=== PATIENT | male | born 1970 | race Hispanic/Latino ===

== ENCOUNTER 2017-05-05 13:34 | Observation (INO) | payer BC, MEDICAID ==
[2017-05-05 13:51] VITALS: RESP 18; TEMP 97.6; O2SAT 99; BMI 26.1
--- NOTE | 2017-05-05 14:38 | ED PDOC ---
Arrival/HPI - General Historian: Patient - History of Present Illness Time/Duration: Prior to Arrival Symptom Onset: Gradual Symptom Course: Worsening Context: Home - General Chief Complaint: Lower Extremity Problem/Injury Time Seen by Provider: 05/05/17 13:55 - History of Present Illness Narrative History of Present Illness (Text): 05/05/17 14:27 47 yo male with PMH of DM, HTN presented to ED with progressively worsening ulcer of great toe on left foot. Patient states that the wound started as an abscess 2 years ago while living in [place]. At that time the wound was debribed. Patient was seeing podiatry, Dr. Bullard however he stopped going months ago. The Patient decided to come in to the ED because the pain became unbearable. Per patient the wound is draining and the smell has worsened. Pain is 7/10, radiating up his leg. He reports fever and chills, as well as diarrhea. He states he took Tylenol at home to help with pain and fever. PMD: Dr. Sears ([facility]) Past Medical History - Provider Review Nursing Documentation Reviewed: Yes - Infectious Disease Hx of Infectious Diseases: None - Tetanus Immunization Tetanus Immunization: Unknown - Past Medical History Past Medical History: No Previous - Cardiac Hx Cardiac Disorders: Yes Hx Hypertension: Yes - Pulmonary Hx Respiratory Disorders: No - Neurological Hx Neurological Disorder: Yes HX Cerebrovascular Accident: Yes (10/26/14) Hx Transient Ischemic Attacks (TIA): Yes - HEENT Hx HEENT Disorder: No - Renal Hx Renal Disorder: No - Endocrine/Metabolic Hx Endocrine Disorders: Yes Hx Diabetes Mellitus Type 2: Yes - Hematological/Oncological Hx Blood Disorders: No - Integumentary Hx Dermatological Disorder: No - Musculoskeletal/Rheumatological Hx Falls: No - Gastrointestinal Hx Gastrointestinal Disorders: No - Genitourinary/Gynecological Hx Genitourinary Disorders: No - Psychiatric Hx Psychophysiologic Disorder: Yes Hx Anxiety: Yes Hx Depression: Yes Hx Substance Use: Yes (heroin, xanax, suboxone) - Past Surgical History Past Surgical History: No Previous - Surgical History Hx Cardiac Catheterization: Yes Hx Coronary Stent: No Hx Joint Replacement: Yes (Right knee) Hx Musculoskeletal Surgery: Yes Hx Orthopedic Surgery: Yes (multiple implants 6 rods 20 screws) - Anesthesia Hx Anesthesia: Yes Hx Anesthesia Reactions: No Hx Malignant Hyperthermia: No - Suicidal Assessment Feels Threatened In Home Enviroment: No Family/Social History - Physician Review Nursing Documentation Reviewed: Yes Family/Social History: No Known Family HX Smoking Status: Heavy Smoker > 10 Cigarettes Daily Hx Alcohol Use: Yes (occasional) Hx Substance Use: Yes (heroin, xanax, suboxone. Current marijuana use) Substance used: recovering cocaine and heroin Hx Substance Use Treatment: No Allergies/Home Meds Allergies/Adverse Reactions: Allergies No Known Allergies Allergy (Verified 10/04/16 11:08) Home Medications: Home Meds Medication Instructions Recorded Confirmed Alprazolam [Xanax] 2 mg PO TID 07/29/16 07/29/16 Quetiapine Fumarate [Seroquel] 100 mg PO DAILY 07/29/16 07/29/16 Gabapentin [Neurontin] 300 mg PO TID 08/16/16 08/16/16 MetFORMIN [glucoPHAGE] 1,000 mg PO DAILY 08/16/16 08/16/16 Review of Systems - Review of Systems Constitutional: Fevers. absent: Weight Change Eyes: Normal ENT: Normal Respiratory: Normal. absent: SOB, Cough, Sputum Cardiovascular: Normal, Edema. absent: Chest Pain, Calf Pain, Syncope Gastrointestinal: Normal, Diarrhea. absent: Abdominal Pain, Constipation, Nausea, Vomiting Genitourinary Male: Normal. absent: Dysuria, Frequency, Hematuria Musculoskeletal: Normal, Joint Swelling. absent: Arthralgias, Back Pain Skin: Normal, Ulcer (left great toe). absent: Rash, Pruritis Neurological: Normal. absent: Headache, Dizziness Endocrine: Normal Hemo/Lymphatic: Normal. absent: Easy Bleeding, Easy Bruising Psychiatric: Normal Physical Exam - Systems Exam Head: Present: Atraumatic, Normocephalic Pupils: Present: Pinpoint Extroacular Muscles: Present: EOMI. No: Gaze Palsy, Entrapment Conjunctiva: Present: Normal. No: Injected, Icteric Mouth: Present: Moist Mucous Membranes. No: Dry Neck: Present: Normal Range of Motion Respiratory/Chest: Present: Clear to Auscultation, Good Air Exchange. No: Respiratory Distress, Accessory Muscle Use, Wheezes, Rhonchi, Tachypneic Cardiovascular: Present: Regular Rate and Rhythm, Normal S1, S2. No: Murmurs, Tachycardic Abdomen: Present: Tenderness, Normal Bowel Sounds. No: Distention, Peritoneal Signs Upper Extremity: Present: Normal Inspection. No: Cyanosis, Edema Lower Extremity: Present: NORMAL PULSES, Other (ulcer, drain with necrotic tissue ). No: CALF TENDERNESS Neurological: Present: GCS=15, CN II-XII Intact Psychiatric: Present: Alert, Oriented x 3, Lethargic Vital Signs Temp Pulse Resp BP Pulse Ox 05/05/17 16:50 89 18 121/75 99 05/05/17 15:25 94 H 18 123/78 99 05/05/17 13:51 97.6 F 101 H 18 125/85 99 05/05/17 13:50 97.6 F 101 H 18 125/85 99 Medical Decision Making ED Course and Treatment: Patient Seen With Resident: In agreement with resident note. Patient was seen and evaluated with resident, came up with plan and treatment together. (José Manuel Dyer) 05/05/17 14:45 Impression: 47 yo male with PMH of DM, HTN, IVDA presented with left great toe wound. Differential Diagnosis included but are not limited to: osteomylitis Plan: - cbc - cmp - xray - blood and wound cultures - abx -- Reassess and disposition Progress Notes: 05/05/17 15:57 - xray of foot showed bony destruction of 5th phalanx, findings consistent with osteomylitis. 05/05/17 16:12 - Labs were reviewed. Case was discussed with Dr. Sears patient will be admitted for osteomylitis. ID, Dr. Weston and podiatry, Dr. Bullard consulted. 05/05/17 16:59 - patient complained of pain. Refused Tylenol. Will order morphine. (Hallie Pritchett) - Lab Interpretations Lab Results: 05/05/17 15:15 05/05/17 15:15 Lab Results 05/05/17 15:15: Sodium 141, Potassium 4.7, Chloride 108 H, Carbon Dioxide 25, Anion Gap 13, BUN 16, Creatinine 0.8, Est GFR ( Amer) > 60, Est GFR (Non- Af Amer) > 60, Random Glucose 277 H, Calcium 9.1, Total Bilirubin 0.3, AST 21, ALT 28, Alkaline Phosphatase 66, Total Protein 6.9, Albumin 3.8, Globulin 3.1, Albumin/Globulin Ratio 1.2 05/05/17 15:15: WBC 7.7, RBC 4.24, Hgb 11.6 L, Hct 35.6 L, MCV 84.0, MCH 27.4, MCHC 32.6, RDW 13.4, Plt Count 223, MPV 9.9, Gran % 61.8, Lymph % (Auto) 30.1, Wise % (Auto) 4.9, Eos % (Auto) 2.3, Baso % (Auto) 0.9, Gran # 4.75, Lymph # 2.3 , Wise # 0.4, Eos # 0.2, Baso # 0.07 - RAD Interpretation Radiology Orders: 05/05/17 14:25 FOOT LEFT 3 VIEWS ROUTINE [RAD] Stat - Medication Orders Current Medication Orders: Discontinued Medications Acetaminophen (Tylenol 325mg Tab) 650 mg PO STAT STA Stop: 05/05/17 15:39 Last Admin: 05/05/17 16:43 Dose: Not Given Non-Admin Reason: Patient Refused Vancomycin HCl (Vancomycin 1gm) 1 gm in 250 mls @ 167 mls/hr IVPB STAT STA PRN Reason: Protocol Stop: 05/05/17 16:08 Last Admin: 05/05/17 16:05 Dose: 167 mls/hr Piperacillin Sod/Tazobactam Sod (Zosyn 3.375 In Ns 100ml) 100 mls @ 200 mls/hr IVPB STAT STA PRN Reason: Protocol Stop: 05/05/17 15:08 Last Admin: 05/05/17 15:27 Dose: 200 mls/hr Morphine Sulfate (Morphine) 2 mg IM STAT STA Stop: 05/05/17 16:34 Last Admin: 05/05/17 16:53 Dose: 2 mg Disposition/Present on Arrival - Present on Arrival Any Indicators Present on Arrival: No History of DVT/PE: No History of Uncontrolled Diabetes: No Urinary Catheter: No History of Decub. Ulcer: No History Surgical Site Infection Following: None - Disposition Have Diagnosis and Disposition been Completed?: Yes Disposition Time: 16:05 Patient Plan: Admission - Disposition Diagnosis: Osteomyelitis of foot Disposition: HOSPITALIZED Patient Problems: Current Active Problems Problem Status Onset Osteomyelitis of foot Acute Condition: FAIR
[2017-05-05] MEDS ORDERED: Piperacillin/Tazobact 3.375 gm 100 ML IVPB STA (14:39)
[2017-05-05] MEDS ORDERED: Vancomycin 1gm in NS 250ml 1 GM/250 ML BAG IVPB STA (14:39)
--- NOTE | 2017-05-05 15:21 | RAD ---
PROCEDURE: Left Foot Radiographs. HISTORY: great toe ulcer COMPARISON: 09/30/2015 FINDINGS: BONES: There is bony destruction of the 5th proximal phalanx which was not present on the prior study. Findings consistent with osteomyelitis. JOINTS: Normal. SOFT TISSUES: Normal. OTHER FINDINGS: None. IMPRESSION: There is bony destruction of the 5th proximal phalanx which was not present on the prior study. Findings consistent with osteomyelitis.
[2017-05-05 15:41] LABS: BASO # 0.07 K/mm3 (0.0-2.0); BASO % 0.9 % (0.0-3.0); EOS # 0.2 (0.0-0.7); EOS % 2.3 % (1.5-5.0); GRAN # 4.75 (1.4-6.5); GRAN % 61.8 % (50.0-68.0); HEMOGLOBIN 11.6 gm/dL (14.0-18.0); LYMPH # 2.3 (1.2-3.4); LYMPH % 30.1 % (22.0-35.0); MEAN CORPUSCULAR HEMOGLOBIN 27.4 pg (25.0-35.0); MEAN CORPUSCULAR HGB CONC 32.6 g/dl (31.0-37.0); MEAN PLATELET VOLUME 9.9 fl (7.0-11.0); MONO # 0.4 (0.1-0.6); MONO % 4.9 % (1.0-6.0); PLATELET COUNT 223 10^3/uL (120.0-450.0); RBC 4.24 10^6/uL (3.5-6.1); RED CELL DISTRIBUTION WIDTH 13.4 % (11.5-14.5); WHITE BLOOD COUNT 7.7 10^3/ul (4.5-11.0)
[2017-05-05 15:44] LABS: ALB/GLOB RATIO 1.2 (1.1-1.8); ALBUMIN 3.8 g/dL (3.0-4.8); ALT/SGPT 28 U/L (7-56); AST/SGOT 21 U/L (15-59); BLOOD UREA NITROGEN 16 mg/dL (7-21); CALCIUM 9.1 mg/dL (8.4-10.5); GFR AFRICAN-AMERICAN > 60; GFR NON-AFRICAN AMERICAN > 60
[2017-05-05] MEDS ORDERED: Morphine 2 mg/ml ISec IM STA (16:33)
[2017-05-05 16:51] VITALS: BP 121/75; PULSE 89
[2017-05-05] MEDS ORDERED: Morphine 2 mg/ml ISec IVP PRN (18:48)
--- NOTE | 2017-05-05 18:59 | CP.PCM.CON ---
History of Present Illness - History of Present Illness History of Present Illness: Infectious Disease Consultation: May 05, 2017 47 yo male with history of NIDDM, hypertension, CAD, TIA, [place], depression, anxiety, IVDA with progressively worsening ulcer on the left foot great toe. Patient had an abscess there 2 years ago. Increasing pain to the area with drainage and malodor. Pain is radiating up the leg. The patient had fevers at home. PMHx: NIDDM, hypertension, CAD, TIA, [place], depression, anxiety, IVDA PSHx: Right Knee replacement, cardiac catheterization, multiple orthopedic surgeries including multiple implants, 6 rods, and 20 screws. Allergies: NKDA Social Hx: Heroin, Xanax, and Suboxone use Social EtOH Heavy tobacco use history Medications: Seroquel, Metformin, Mobic, Neurontin, Xanax Family Hx: none given ROS: fevers, left foot pain, depression, anxiety. No chest pain, melena, hematuria, hematochezia, hematemesis, SOB, vision loss, hearing loss. Past Patient History - Infectious Disease Hx of Infectious Diseases: None - Tetanus Immunizations Tetanus Immunization: Unknown - Past Medical History & Family History Past Medical History?: Yes - Past Social History Smoking Status: Heavy Smoker > 10 Cigarettes Daily - CARDIAC Hx Cardiac Disorders: Yes Hx Hypertension: Yes - PULMONARY Hx Respiratory Disorders: No - NEUROLOGICAL Hx Neurological Disorder: Yes HX Cerebrovascular Accident: Yes (10/26/14) Hx Transient Ischemic Attacks (TIA): Yes - HEENT Hx HEENT Problems: No - RENAL Hx Chronic Kidney Disease: No - ENDOCRINE/METABOLIC Hx Endocrine Disorders: Yes Hx Diabetes Mellitus Type 2: Yes - HEMATOLOGICAL/ONCOLOGICAL Hx Blood Disorders: No - INTEGUMENTARY Hx Dermatological Problems: No - MUSCULOSKELETAL/RHEUMATOLOGICAL Hx Falls: No - GASTROINTESTINAL Hx Gastrointestinal Disorders: No - GENITOURINARY/GYNECOLOGICAL Hx Genitourinary Disorders: No - PSYCHIATRIC Hx Psychophysiologic Disorder: Yes Hx Anxiety: Yes Hx Depression: Yes Hx Substance Use: Yes (heroin, xanax, suboxone. Current marijuana use) - SURGICAL HISTORY Hx Cardiac Catheterization: Yes Hx Coronary Stent: No Hx Joint Replacement: Yes (Right knee) Hx Musculoskeletal Surgery: Yes Hx Orthopedic Surgery: Yes (multiple implants 6 rods 20 screws) - ANESTHESIA Hx Anesthesia: Yes Hx Anesthesia Reactions: No Hx Malignant Hyperthermia: No Meds Allergies/Adverse Reactions: Allergies Allergy/AdvReac Type Severity Reaction Status Date / Time No Known Allergies Allergy Verified 10/04/16 11:08 Physical Exam - Constitutional Appears: Non-toxic, No Acute Distress, Chronically Ill - Head Exam Head Exam: ATRAUMATIC, NORMOCEPHALIC - Eye Exam Eye Exam: EOMI, PERRL Pupil Exam: NORMAL ACCOMODATION, PERRL - ENT Exam ENT Exam: Mucous Membranes Moist, Normal External Ear Exam, TM's Normal Bilaterally - Neck Exam Neck exam: Positive for: Full Rom, Normal Inspection - Respiratory Exam Respiratory Exam: Clear to Auscultation Bilateral, NORMAL BREATHING PATTERN. absent: Rales, Rhonchi, Wheezes - Cardiovascular Exam Cardiovascular Exam: REGULAR RHYTHM, RRR, +S1, +S2 - GI/Abdominal Exam GI & Abdominal Exam: Normal Bowel Sounds, Soft. absent: Distended, Tenderness - Extremities Exam Extremities exam: Positive for: full ROM Additional comments: stage III ulceration at least in big toe of left foot. malodorous with serosanguinous discharge. - Neurological Exam Neurological exam: Alert, CN II-XII Intact, Oriented x3 - Psychiatric Exam Psychiatric exam: Normal Affect, Normal Mood - Skin Additional comments: as above. Results - Vital Signs Recent Vital Signs: Last Vital Signs Temp 97.6 F 05/05/17 13:51 Pulse 89 05/05/17 16:50 Resp 18 05/05/17 16:50 BP 121/75 05/05/17 16:50 Pulse Ox 99 05/05/17 16:50 - Labs Result Diagrams: 05/05/17 15:15 05/05/17 15:15 Assessment & Plan - Assessment and Plan (Free Text) Assessment: 47 yo male with extensive past medical history that includes NIDDM, hypertension , CAD, TIA, [place], depression, anxiety, IVDA. The patient with deep ulceration to the left big toe with concerns for osteomyelitis. Patient started on antibiotics of Zosyn and Vancomycin for care. Supportive care. Local wound care. Awaiting cultures from wound site. Obtain ESR and C-Reactive Protein. Awaiting podiatry evaluation. May need MRI as well. X-ray showing bony destruction of the 5th proximal phalanx not seen in other imaging studies of the left foot prior to this. Thank you for allowing me to participate in the care of the patient, we will follow with you.
[2017-05-05] MEDS ORDERED: Vancomycin 1gm in NS 250ml 1 GM/250 ML BAG IVPB SCH (19:00)
[2017-05-05] MEDS ORDERED: Insulin Reg-LOW-Coverage SC SCH (22:00)
[2017-05-06] MEDS ORDERED: Piperacillin/Tazobact 3.375 gm 100 ML IVPB SCH
--- NOTE | 2017-05-24 12:46 | HP ---
HISTORY OF PRESENT ILLNESS: The patient is a 47-year-old male, admitted through the Emergency [facility] on 05/05/2017 for osteomyelitis of the foot. The patient signed out AMA before I was able to se e him. Nicholas Sears JD, MD cc: [id number] TT: 05/24/2017 12:46:23 en
--- NOTE | 2017-05-24 18:15 | DS ---
HOSPITAL COURSE: The patient is a 47-year-old male admitted through the Emergency Department on 05/2017. He signed out AMA and I was unable to see him. Nicholas Sears JD, MD cc: [id number] TT: 05/24/2017 18:15:17 dn
== END 2017-05-05 20:23 | disposition left against medical advice (07) ==
LOC: ED 13:34 → ERH 16:10 → 3RNO 18:17
PROVIDERS: ADMIT Internal Medicine; ATTEND Internal Medicine
DX: E11.69 Type 2 diabetes mellitus with other specified complication (principal); M86.8X7 Other osteomyelitis, ankle and foot; E11.621 Type 2 diabetes mellitus with foot ulcer; L97.529 Non-pressure chronic ulcer of other part of left foot with unspecified severity; I10 Essential (primary) hypertension; I25.10 Atherosclerotic heart disease of native coronary artery without angina pectoris; Z79.899 Other long term (current) drug therapy; Z86.73 Personal history of transient ischemic attack (TIA), and cerebral infarction without residual deficits; Z96.651 Presence of right artificial knee joint; F41.9 Anxiety disorder, unspecified; F32.89 Other specified depressive episodes; F11.90 Opioid use, unspecified, uncomplicated; F13.90 Sedative, hypnotic, or anxiolytic use, unspecified, uncomplicated; F12.90 Cannabis use, unspecified, uncomplicated; F19.90 Other psychoactive substance use, unspecified, uncomplicated; R40.2412 Glasgow coma scale score 13-15, at arrival to emergency department; I25.2 Old myocardial infarction; F17.210 Nicotine dependence, cigarettes, uncomplicated
CPT/HCPCS: 73630; 80053; 85025; 87040; 87070; 87181; 96372; 96374; 96375; 99284; G0378; J2270; J2543

== ENCOUNTER 2017-05-15 19:30 | Emergency (ER) | payer BC ==
[2017-05-15 19:32] VITALS: BMI 26.2
[2017-05-15 19:51] VITALS: PULSE 97; RESP 16; O2SAT 99
[2017-05-15 20:21] VITALS: BP 138/72
--- NOTE | 2017-05-15 20:26 | ED PDOC ---
Arrival/HPI - General Chief Complaint: Lower Extremity Problem/Injury Time Seen by Provider: 05/15/17 19:50 Historian: Patient - History of Present Illness Narrative History of Present Illness (Text): 05/15/17 20:22 47yr old male with hx osteomyelitis to the left foot presents today with worsening left foot pain. Patient states he has just completed Levaquin at home. Patient states he is still having pain. pt states he isnt taking any medications for pain at home and needs pain medication. Friend at beside states patient keeps signing out against medical advise. pt denies fever/chills. c/o severe pain to the left foot. pt states he was supposed to f/u in the wound clinic but no one ever called him. no other complaints. Symptom Onset: Gradual Symptom Course: Unchanged Quality: Aching, Burning, Throbbing Severity Level: Severe Past Medical History - Provider Review Nursing Documentation Reviewed: Yes - Travel History Have you recently traveled outside [place] w/in the past 3 mons?: No - Infectious Disease Hx of Infectious Diseases: None - Tetanus Immunization Tetanus Immunization: Unknown - Past Medical History Past Medical History: No Previous - Cardiac Hx Cardiac Disorders: Yes Hx Hypertension: Yes - Pulmonary Hx Respiratory Disorders: No - Neurological Hx Neurological Disorder: Yes HX Cerebrovascular Accident: Yes (10/26/14) Hx Transient Ischemic Attacks (TIA): Yes - HEENT Hx HEENT Disorder: No - Renal Hx Renal Disorder: No - Endocrine/Metabolic Hx Endocrine Disorders: Yes Hx Diabetes Mellitus Type 2: Yes - Hematological/Oncological Hx Blood Disorders: No - Integumentary Hx Dermatological Disorder: No - Musculoskeletal/Rheumatological Hx Falls: No - Gastrointestinal Hx Gastrointestinal Disorders: No - Genitourinary/Gynecological Hx Genitourinary Disorders: No - Psychiatric Hx Psychophysiologic Disorder: Yes Hx Anxiety: Yes Hx Depression: Yes Hx Substance Use: Yes (heroin, xanax, suboxone. Current marijuana use) - Past Surgical History Past Surgical History: No Previous - Surgical History Hx Cardiac Catheterization: Yes Hx Coronary Stent: No Hx Joint Replacement: Yes (Right knee) Hx Musculoskeletal Surgery: Yes Hx Orthopedic Surgery: Yes (multiple implants 6 rods 20 screws) - Anesthesia Hx Anesthesia: Yes Hx Anesthesia Reactions: No Hx Malignant Hyperthermia: No - Suicidal Assessment Feels Threatened In Home Enviroment: No Family/Social History - Physician Review Nursing Documentation Reviewed: Yes Family/Social History: Unknown Family HX Smoking Status: Heavy Smoker > 10 Cigarettes Daily Hx Alcohol Use: Yes (occasional) Frequency of alcohol use: Socially Hx Substance Use: Yes (heroin, xanax, suboxone. Current marijuana use) Substance used: recovering cocaine and heroin Hx Substance Use Treatment: No Allergies/Home Meds Allergies/Adverse Reactions: Allergies No Known Allergies Allergy (Verified 05/15/17 19:32) Home Medications: Home Meds Medication Instructions Recorded Confirmed Alprazolam [Xanax] 2 mg PO TID 07/29/16 05/15/17 Quetiapine Fumarate [Seroquel] 100 mg PO DAILY 07/29/16 05/15/17 Gabapentin [Neurontin] 300 mg PO TID 08/16/16 05/15/17 MetFORMIN [glucoPHAGE] 1,000 mg PO DAILY 08/16/16 05/15/17 Review of Systems - Review of Systems Constitutional: absent: Fevers Cardiovascular: absent: Chest Pain Gastrointestinal: absent: Abdominal Pain Musculoskeletal: Arthralgias Skin: Rash, Skin Lesions Neurological: absent: Headache Physical Exam Vital Signs Reviewed: Yes Vital Signs Pulse Resp Pulse Ox 05/15/17 19:51 97 H 16 99 Temperature: Afebrile Blood Pressure: Normal Pulse: Regular Respiratory Rate: Normal Appearance: Positive for: Well-Appearing, Non-Toxic, Comfortable Pain Distress: None Mental Status: Positive for: Alert and Oriented X 3 Finger Stick Blood Glucose: 216 - Systems Exam Head: Present: Atraumatic Mouth: Present: Moist Mucous Membranes Cardiovascular: Present: Regular Rate and Rhythm Upper Extremity: Present: Normal Inspection, Normal ROM Lower Extremity: Present: Normal ROM, Tenderness (left foot; there is a ulcer noted to the plantar aspect of the left great toe; + slight erythema noted to toe; no purulent discharge noted; no ankle tenderness. no calf tenderness. no edema. ), Capillary Refill < 2 s. No: CALF TENDERNESS, Swelling, Erythema, Deformity, Temperature Abnormalties Neurological: Present: GCS=15, Speech Normal Skin: Present: Warm, Dry Psychiatric: Present: Alert, Oriented x 3 Medical Decision Making ED Course and Treatment: 05/15/17 20:28 diabetic male with left great toe ulcer. will check blood work and xray left foot. toradol ordered for pain pt refusing to take toradol for pain; wants to sign out against advise. states toradol doesnt work for his pain. [employer] aware site reviewed; pt had rx for oxycontin 15mg on 05/07 filled. when questioned about it he denied taking any medications. pt became agitated in ER. refusing blood work, wants to leave. Patient has been advised to not leave the emergency room but has decided to go AGAINST MEDICAL ADVICE. The patient possesses capacity to make decisions and has voiced understanding to all my warnings of potential worsening of the condition for which medical care was sought. I have discussed all known and potential risks and consequences to the patient leaving AGAINST MEDICAL ADVICE. Patient is leaving against medical advise. AMA form signed. witness by TRISTAN ESCALANTE. i advised patient of risk of infection, , loss of limb, disability, worsening of symptoms. pt was advised that he can return at any point in time to continue his care. impression; toe ulcer, hx of DM, hx of osteomyelitis AMA return if you wish to continue your care. - RAD Interpretation Radiology Orders: 05/15/17 20:14 FOOT LEFT 3 VIEWS ROUTINE [RAD] Stat - Medication Orders Current Medication Orders: Ketorolac Tromethamine (Toradol) 30 mg IVP STAT STA Stop: 05/15/17 20:14 Disposition/Present on Arrival - Present on Arrival Any Indicators Present on Arrival: No History of DVT/PE: No History of Uncontrolled Diabetes: No Urinary Catheter: No History of Decub. Ulcer: No History Surgical Site Infection Following: None - Disposition Have Diagnosis and Disposition been Completed?: Yes Diagnosis: Ulcer of toe, Foot pain, History of osteomyelitis Disposition: AGAINST MEDICAL ADVICE Disposition Time: 20:20 Patient Plan: Other (AMA) Condition: UNKNOWN Additional Instructions: return if you wish to continue your care return immediately if symptoms worsen,persist or if new symptoms develop. Referrals: Nicholas Sears JD, MD [Primary Care Provider] - Follow up with primary Elisabeth Bullard DPM [Staff Provider] - Follow up with primary
== END 2017-05-15 20:22 | disposition left against medical advice (07) ==
LOC: ED 19:30
DX: E11.621 Type 2 diabetes mellitus with foot ulcer (principal); L97.529 Non-pressure chronic ulcer of other part of left foot with unspecified severity; M79.672 Pain in left foot; M86.8X7 Other osteomyelitis, ankle and foot

== ENCOUNTER 2017-05-15 23:40 | Emergency (ER) | payer BC ==
[2017-05-15 23:40] VITALS: BMI 26.2
[2017-05-16 00:06] VITALS: RESP 18
[2017-05-16] MEDS ORDERED: Sodium Chloride 0.9% 1,000 ML IV STA ×2 (00:24→03:03)
[2017-05-16 01:05] LABS: BASO # 0.03 K/mm3 (0.0-2.0); BASO % 0.5 % (0.0-3.0); EOS # 0.1 (0.0-0.7); EOS % 1.8 % (1.5-5.0); GRAN # 4.45 (1.4-6.5); GRAN % 67.7 % (50.0-68.0); HEMOGLOBIN 11.1 gm/dL (14.0-18.0); LYMPH # 1.6 (1.2-3.4); LYMPH % 24.5 % (22.0-35.0); MEAN CELL VOLUME 82.3 fL (80.0-105.0); MEAN CORPUSCULAR HEMOGLOBIN 27.7 pg (25.0-35.0); MEAN CORPUSCULAR HGB CONC 33.6 g/dl (31.0-37.0); MEAN PLATELET VOLUME 9.5 fl (7.0-11.0); MONO # 0.4 (0.1-0.6); MONO % 5.5 % (1.0-6.0); PLATELET COUNT 225 10^3/uL (120.0-450.0); RBC 4.01 10^6/uL (3.5-6.1); RED CELL DISTRIBUTION WIDTH 13.3 % (11.5-14.5); WHITE BLOOD COUNT 6.6 10^3/ul (4.5-11.0)
[2017-05-16 01:16] LABS: ALB/GLOB RATIO 1.2 (1.1-1.8); ALBUMIN 4.2 g/dL (3.0-4.8); ALT/SGPT 22 U/L (7-56); AST/SGOT 18 U/L (15-59); BLOOD UREA NITROGEN 31 mg/dL (7-21); CALCIUM 9.3 mg/dL (8.4-10.5); GFR AFRICAN-AMERICAN > 60; GFR NON-AFRICAN AMERICAN 50
[2017-05-16] MEDS ORDERED: Morphine 2 mg/ml ISec IVP STA ×2 (01:30→02:17)
--- NOTE | 2017-05-16 01:57 | ED PDOC ---
Arrival/HPI - General Historian: Patient - History of Present Illness Symptom Onset: Gradual Symptom Course: Worsening Quality: Stabbing, Burning, Throbbing Severity Level: 10 <Radha Mckeon - Last Filed: 05/16/17 01:53> <Hernesto Lu - Last Filed: 05/16/17 03:29> - General Chief Complaint: Lower Extremity Problem/Injury Time Seen by Provider: 05/16/17 00:24 - History of Present Illness Narrative History of Present Illness (Text): 05/16/17 01:53 47yr old male with hx osteomyelitis to the left foot presents today with worsening left foot pain. Patient states he has just completed Levaquin at home. Patient states he is still having pain. pt states he isnt taking any medications for pain at home and needs pain medication. Pt signed out against medical advise 05/05. pt denies fever/chills. c/o severe pain to the left foot. pt states he was supposed to f/u in the wound clinic but no one ever called him. no other complaints. (Radha Mckeon) Past Medical History - Provider Review Nursing Documentation Reviewed: Yes - Travel History Have you recently traveled outside [place] w/in the past 3 mons?: No - Infectious Disease Hx of Infectious Diseases: None - Tetanus Immunization Tetanus Immunization: Unknown - Past Medical History Past Medical History: No Previous - Cardiac Hx Cardiac Disorders: Yes Hx Hypertension: Yes - Pulmonary Hx Respiratory Disorders: No - Neurological Hx Neurological Disorder: Yes HX Cerebrovascular Accident: Yes (10/26/14) Hx Transient Ischemic Attacks (TIA): Yes - HEENT Hx HEENT Disorder: No - Renal Hx Renal Disorder: No - Endocrine/Metabolic Hx Endocrine Disorders: Yes Hx Diabetes Mellitus Type 2: Yes - Hematological/Oncological Hx Blood Disorders: No - Integumentary Hx Dermatological Disorder: No - Musculoskeletal/Rheumatological Hx Falls: No - Gastrointestinal Hx Gastrointestinal Disorders: No - Genitourinary/Gynecological Hx Genitourinary Disorders: No - Psychiatric Hx Psychophysiologic Disorder: Yes Hx Anxiety: Yes Hx Depression: Yes Hx Substance Use: Yes (heroin, xanax, suboxone. Current marijuana use) - Past Surgical History Past Surgical History: No Previous - Surgical History Hx Cardiac Catheterization: Yes Hx Coronary Stent: No Hx Joint Replacement: Yes (Right knee) Hx Musculoskeletal Surgery: Yes Hx Orthopedic Surgery: Yes (multiple implants 6 rods 20 screws) - Anesthesia Hx Anesthesia: Yes Hx Anesthesia Reactions: No Hx Malignant Hyperthermia: No - Suicidal Assessment Feels Threatened In Home Enviroment: No <Radha Mckeon - Last Filed: 05/16/17 01:53> Family/Social History - Physician Review Nursing Documentation Reviewed: Yes Family/Social History: Unknown Family HX Smoking Status: Heavy Smoker > 10 Cigarettes Daily Hx Alcohol Use: Yes (occasional) Hx Substance Use: Yes (heroin, xanax, suboxone. Current marijuana use) Substance used: recovering cocaine and heroin Hx Substance Use Treatment: No <Radha Mckeon - Last Filed: 05/16/17 01:53> Allergies/Home Meds <Radha Mckeon - Last Filed: 05/16/17 01:53> <Hernesto Lu - Last Filed: 05/16/17 03:29> Allergies/Adverse Reactions: Allergies No Known Allergies Allergy (Verified 05/15/17 19:32) Home Medications: Home Meds Medication Instructions Recorded Confirmed Alprazolam [Xanax] 2 mg PO TID 07/29/16 05/15/17 Quetiapine Fumarate [Seroquel] 100 mg PO DAILY 07/29/16 05/15/17 Gabapentin [Neurontin] 300 mg PO TID 08/16/16 05/15/17 MetFORMIN [glucoPHAGE] 1,000 mg PO DAILY 08/16/16 05/15/17 Review of Systems - Review of Systems Constitutional: absent: Fatigue, Fevers Respiratory: absent: SOB, Cough Cardiovascular: absent: Chest Pain, Palpitations Gastrointestinal: absent: Abdominal Pain, Nausea, Vomiting Musculoskeletal: Arthralgias Skin: absent: Rash, Pruritis Neurological: absent: Headache <Radha Mckeon - Last Filed: 05/16/17 01:53> Physical Exam Vital Signs Reviewed: Yes Temperature: Afebrile Blood Pressure: Normal Pulse: Regular Respiratory Rate: Normal Appearance: Positive for: Well-Appearing, Non-Toxic, Uncomfortable Pain Distress: Mild Mental Status: Positive for: Alert and Oriented X 3 - Systems Exam Head: Present: Atraumatic Mouth: Present: Moist Mucous Membranes Respiratory/Chest: Present: Clear to Auscultation, Good Air Exchange. No: Respiratory Distress, Accessory Muscle Use Cardiovascular: Present: Regular Rate and Rhythm, Normal S1, S2. No: Murmurs Lower Extremity: Present: Tenderness (left foot; + ulcer noted to plantar aspect of left great toe; + edema, + tenderness, no calf tenderness; slight erythema noted to great toe. ), Swelling, Neurovascularly Intact, Capillary Refill < 2 s. No: CALF TENDERNESS, NORMAL PULSES, Erythema, Deformity Neurological: Present: GCS=15 Skin: Present: Warm, Dry Psychiatric: Present: Alert, Oriented x 3 <Radha Mckeon - Last Filed: 05/16/17 01:53> Medical Decision Making <Radha Mckeon - Last Filed: 05/16/17 01:53> <Hernesto Lu - Last Filed: 05/16/17 03:29> ED Course and Treatment: 05/16/17 01:56 47yr old diabetic male with left foot pain. hx of osteomyelitis. signed out AMA may 05. completed Po levaquin at home. cbc; wnl cmp; cr; 1.5, bun 31 blood cultures pending xray left foot; no fracture vancomycin 500mg IV given zosyn given IV. toradol IV NS iv bolus 05/16/17 02:15 will admit patient to med/surg; diabetic male, smoker, with left foot infection / toe ulcer. case discussed with dr. Sears; would like patient on hospitalist service. case discussed with dr. edouard and dr. castaneda; accepts admission. impression; toe ulcer, foot infection, renal insufficiency. admit to med/surg (Radha Mckeon) - Lab Interpretations Lab Results: 05/16/17 00:49 05/16/17 00:49 Lab Results 05/16/17 00:49: WBC 6.6, RBC 4.01, Hgb 11.1 L, Hct 33.0 L, MCV 82.3, MCH 27.7, MCHC 33.6, RDW 13.3, Plt Count 225, MPV 9.5, Gran % 67.7, Lymph % (Auto) 24.5, [place] % (Auto) 5.5, Eos % (Auto) 1.8, Baso % (Auto) 0.5, Gran # 4.45, Lymph # 1.6 , [place] # 0.4, Eos # 0.1, Baso # 0.03 05/16/17 00:49: Sodium 142, Potassium 4.6, Chloride 108 H, Carbon Dioxide 23, Anion Gap 16, BUN 31 H, Creatinine 1.5 H, Est GFR ( Amer) > 60, Est GFR ( Non-Af Amer) 50, Random Glucose 135 H, Calcium 9.3, Total Bilirubin 0.4, AST 18 , ALT 22, Alkaline Phosphatase 66, Total Protein 7.7, Albumin 4.2, Globulin 3.5 , Albumin/Globulin Ratio 1.2 - RAD Interpretation Radiology Orders: 05/16/17 00:24 FOOT LEFT 3 VIEWS ROUTINE [RAD] Stat 05/16/17 01:57 CHEST ONE VIEW [RAD] Stat - Medication Orders Current Medication Orders: Acetaminophen (Tylenol 325mg Tab) 650 mg PO Q6H PRN PRN Reason: Fever >100.4 F Albuterol Sulfate (Albuterol 0.083% Inhal Karrie (2.5 Mg/3 Ml) Ud) 2.5 mg IH Q2H PRN PRN Reason: Shortness of Breath Alprazolam (Xanax) 0.5 mg PO TID JENN Famotidine (Pepcid) 40 mg PO HS JENN Gabapentin (Neurontin) 300 mg PO TID JENN PRN Reason: Protocol Heparin Sodium (Porcine) (Heparin) 5,000 units SC Q12H JENN PRN Reason: Protocol Last Admin: 05/16/17 03:12 Dose: 5,000 units Sodium Chloride (Sodium Chloride 0.9%) 1,000 mls @ 100 mls/hr IV .Q10H JENN Last Admin: 05/16/17 03:13 Dose: 100 mls/hr Piperacillin Sod/Tazobactam Sod (Zosyn 3.375 In Ns 100ml) 100 mls @ 200 mls/hr IVPB Q6H JENN PRN Reason: Protocol Stop: 05/16/17 14:59 Sodium Chloride (Sodium Chloride 0.9%) 1,000 mls @ 999 mls/hr IV .Q1H1M STA Stop: 05/16/17 04:03 Vancomycin HCl (Vancomycin 1gm) 1 gm in 250 mls @ 167 mls/hr IVPB Q12H JENN Ibuprofen (Motrin Tab) 600 mg PO Q6H PRN PRN Reason: Pain, Mild (1-3) Insulin Human Lispro (Humalog) 0 units SC ACHS JENN PRN Reason: Protocol Nicotine (Nicoderm Cq) 1 patch TD DAILY JENN Quetiapine Fumarate (Seroquel) 100 mg PO DAILY JENN PRN Reason: Protocol Discontinued Medications Alprazolam (Xanax) 2 mg PO TID [facility] Sodium Chloride (Sodium Chloride 0.9%) 1,000 mls @ 999 mls/hr IV .Q1H1M STA Stop: 05/16/17 01:24 Last Admin: 05/16/17 00:40 Dose: 999 mls/hr Piperacillin Sod/Tazobactam Sod (Zosyn 3.375 In Ns 100ml) 100 mls @ 200 mls/hr IVPB STAT STA PRN Reason: Protocol Stop: 05/16/17 02:41 Last Admin: 05/16/17 02:30 Dose: 200 mls/hr Ketorolac Tromethamine (Toradol) 30 mg IVP STAT STA Stop: 05/16/17 00:25 Last Admin: 05/16/17 00:40 Dose: 30 mg Ketorolac Tromethamine (Toradol) Confirm Administered Dose 30 mg .ROUTE .STK- MED ONE Stop: 05/16/17 00:28 Last Admin: 05/16/17 00:41 Dose: Meloxicam (Mobic) 15 mg PO DAILY PRN PRN Reason: Other Morphine Sulfate (Morphine) 2 mg IVP STAT STA Stop: 05/16/17 02:18 Last Admin: 05/16/17 02:31 Dose: 2 mg - PA / ASSOCIATE PROFESSOR OF BIOLOGY / Resident Statement RAUDEL has reviewed & agrees with the documentation as recorded. RAUDEL has examined the patient and agrees with the treatment plan. <Hernesto Lu - Last Filed: 05/16/17 03:29> Disposition/Present on Arrival - Present on Arrival Any Indicators Present on Arrival: No History of DVT/PE: No History of Uncontrolled Diabetes: No Urinary Catheter: No History of Decub. Ulcer: No History Surgical Site Infection Following: None - Disposition Have Diagnosis and Disposition been Completed?: Yes Disposition Time: 02:15 Patient Plan: Admission <Radha Mckeon - Last Filed: 05/16/17 01:53> <Hernesto Lu - Last Filed: 05/16/17 03:29> - Disposition Diagnosis: Ulcer of toe, Renal insufficiency Disposition: HOSPITALIZED Patient Problems: Current Active Problems Problem Status Onset Renal insufficiency Acute Ulcer of toe Acute Condition: FAIR
[2017-05-16] MEDS ORDERED: Piperacillin/Tazobact 3.375 gm 100 ML IVPB STA (02:12)
--- NOTE | 2017-05-16 02:26 | CP.PCM.HP ---
<BiankaAnders - Last Filed: 05/16/17 03:03> History of Present Illness - History of Present Illness History of Present Illness: cc: Toe Pain as per ED staff; the patient had just received his morphine and was reluctant to wake up to be examined; continued to close eyes and snore in my face as i talked as loudly as possible to him. unable to perform ROS due to this. Retrieved the following information from the EMR on his last AMA from the hospital; patient has a history of frequent AMA and was seen my psychiatry on this last admission in the ICU and was deemed to have capacity on the last admission to leave AMA. HPI: Patient is a 46yo male w/ PMH of NIDDM, hypertension, coronary artery disease, TIA, [place], Depression/Anxiety, IVDA PMHx: IDDM, IVDA, Hypertension, Coronary artery disease, TIA, [place], Depression, Anxiety PSHx: Cardiac cath, R. knee surgery PFHx: Noncontributory Allergies: NKDA Medications: Reviewed and as per record Social History: Unemployed, lives with family, Smokes 1ppd for past 20 yrs, denies alcohol use. Admits to former heroin use Present on Admission - Present on Admission Any Indicators Present on Admission: Yes History of DVT/PE: No History of Uncontrolled Diabetes: Yes Urinary Catheter: No Decubitus Ulcer Present: No Review of Systems - Review of Systems Review of Systems: unable to obtain due to patient being non compliant with exam Past Patient History - Infectious Disease Hx of Infectious Diseases: None - Tetanus Immunizations Tetanus Immunization: Unknown - Past Medical History & Family History Past Medical History?: Yes - Past Social History Smoking Status: Heavy Smoker > 10 Cigarettes Daily - CARDIAC Hx Cardiac Disorders: Yes Hx Hypertension: Yes - PULMONARY Hx Respiratory Disorders: No - NEUROLOGICAL Hx Neurological Disorder: Yes HX Cerebrovascular Accident: Yes (10/26/14) Hx Transient Ischemic Attacks (TIA): Yes - HEENT Hx HEENT Problems: No - RENAL Hx Chronic Kidney Disease: No - ENDOCRINE/METABOLIC Hx Endocrine Disorders: Yes Hx Diabetes Mellitus Type 2: Yes - HEMATOLOGICAL/ONCOLOGICAL Hx Blood Disorders: No - INTEGUMENTARY Hx Dermatological Problems: No - MUSCULOSKELETAL/RHEUMATOLOGICAL Hx Falls: No - GASTROINTESTINAL Hx Gastrointestinal Disorders: No - GENITOURINARY/GYNECOLOGICAL Hx Genitourinary Disorders: No - PSYCHIATRIC Hx Psychophysiologic Disorder: Yes Hx Anxiety: Yes Hx Depression: Yes Hx Substance Use: Yes (heroin, xanax, suboxone. Current marijuana use) - SURGICAL HISTORY Hx Cardiac Catheterization: Yes Hx Coronary Stent: No Hx Joint Replacement: Yes (Right knee) Hx Musculoskeletal Surgery: Yes Hx Orthopedic Surgery: Yes (multiple implants 6 rods 20 screws) - ANESTHESIA Hx Anesthesia: Yes Hx Anesthesia Reactions: No Hx Malignant Hyperthermia: No Meds Allergies/Adverse Reactions: Allergies Allergy/AdvReac Type Severity Reaction Status Date / Time No Known Allergies Allergy Verified 05/15/17 19:32 Physical Exam - Constitutional Appears: Non-toxic - Head Exam Head Exam: ATRAUMATIC - Eye Exam Eye Exam: EOMI - ENT Exam ENT Exam: Mucous Membranes Moist - Respiratory Exam Respiratory Exam: Clear to Auscultation Bilateral, Wheezes. absent: Rales, Rhonchi - Cardiovascular Exam Cardiovascular Exam: REGULAR RHYTHM - GI/Abdominal Exam GI & Abdominal Exam: Normal Bowel Sounds - Rectal Exam Rectal Exam: Deferred - Extremities Exam Extremities exam: Positive for: calf tenderness Results - Vital Signs Recent Vital Signs: Last Vital Signs Temp 98.2 F 05/16/17 00:05 Pulse 88 05/16/17 00:05 Resp 18 05/16/17 00:05 BP 124/72 05/16/17 00:05 Pulse Ox 99 05/16/17 00:05 - Labs Result Diagrams: 05/16/17 00:49 05/16/17 00:49 Labs: Laboratory Results - last 24 hr 05/16/17 05/16/17 00:49 00:49 WBC 6.6 RBC 4.01 Hgb 11.1 L Hct 33.0 L MCV 82.3 MCH 27.7 MCHC 33.6 RDW 13.3 Plt Count 225 MPV 9.5 Gran % 67.7 Lymph % (Auto) 24.5 [place] % (Auto) 5.5 Eos % (Auto) 1.8 Baso % (Auto) 0.5 Gran # 4.45 Lymph # 1.6 [place] # 0.4 Eos # 0.1 Baso # 0.03 Sodium 142 Potassium 4.6 Chloride 108 H Carbon Dioxide 23 Anion Gap 16 BUN 31 H Creatinine 1.5 H Est GFR ( Amer) > 60 Est GFR (Non-Af Amer) 50 Random Glucose 135 H Calcium 9.3 Total Bilirubin 0.4 AST 18 ALT 22 Alkaline Phosphatase 66 Total Protein 7.7 Albumin 4.2 Globulin 3.5 Albumin/Globulin Ratio 1.2 Assessment & Plan - Assessment and Plan (Free Text) Assessment: 47yo M admitted for presumed osteomyelitis of the L Great Toe Osteomyelitis of the L Great Toe -MRI ordered -f/u podiatry recs -patient AMA'd on his last admission before they could do an MRI of his foot -blood cultures ordered -f/u ESR/CRP -On Vanc and Zosyn -ID Consult obtained; Dr. Rogers Unilateral Leg Swelling -f/u ultrasounds from lower extremities -f/u d-dimer MARY -most likely 2/2 to dehydration -s/p 2 liters in the ER -will rehydrate with 100ml/hr afterwords NIDDM -RISS Hypertension -c/w home meds Depression/Anxiety -c/w seroquel Proph -Heparin SC Q12H -Fall precautions -heart healthy diet -pepcid Case Discussed with Dr. Christian Carlton PGY1 Night Float Decision To Admit - Pt Status Changed To: Hospital Disposition Of: Inpatient Admission - Admit Certification Admit to Inpatient:: After my assessment, the patient will require hospitalization for at least two midnights. This is because of the severity of symptoms shown, intensity of services needed, and/or the medical risk in this patient being treated as an outpatient. - . Bed Request Type: Med/Surg Admitting Physician: Vadim Gonzales <Vadim Gonzales - Last Filed: 05/16/17 04:44> Results - Vital Signs Recent Vital Signs: Last Vital Signs Temp 98.4 F 05/16/17 02:00 Pulse 77 05/16/17 03:39 Resp 18 05/16/17 03:39 BP 136/74 05/16/17 03:39 Pulse Ox 100 05/16/17 03:39 - Labs Result Diagrams: 05/16/17 00:49 05/16/17 00:49 Attending/Attestation - Attestation I have personally seen and examined this patient.: Yes I have fully participated in the care of the patient.: Yes I have reviewed all pertinent clinical information: Yes Notes (Text): 05/16/17 04:35 Patient was seen in the ER when he was in bed # 21. Agree with history, physical examination, assessment and plan. Patient decided to leave AMA. A refusal for was signed by patient in presence of nurse OBI after I explained to him in detail the consequences of signing out AMA and not receiving IV antibiotics, complications including amputation of leg ,sepsis, coma, . DISCHARGE DX:Left AMA. Non compliant. Osteomyelitis left great toe. left leg swelling. Acute Kidney Injury. NIDDM. HTN. Anxiety. Depression. Tobacco dependence.
[2017-05-16] MEDS ORDERED: Albuterol 0.083% Inhal Sol (2.5 mg/3 mL) UD IH PRN (02:27)
[2017-05-16] MEDS ORDERED: Sodium Chloride 0.9% 1,000 ML IV SCH (02:30)
[2017-05-16] MEDS ORDERED: Vancomycin 1 g Inj IVPB SCH (02:45)
[2017-05-16] MEDS ORDERED: Vancomycin 1gm in NS 250ml 1 GM/250 ML BAG IVPB SCH (03:30)
[2017-05-16 03:40] VITALS: BP 136/74; PULSE 77; TEMP 98.4; O2SAT 100
[2017-05-16] MEDS ORDERED: Insulin Lispro 1 UNITS/0.01 ML SC SCH (07:30)
[2017-05-16] MEDS ORDERED: Piperacillin/Tazobact 3.375 gm 100 ML IVPB SCH (08:30)
--- NOTE | 2017-05-16 09:45 | RAD ---
PROCEDURE: Left Foot Radiographs. HISTORY: left foot pain COMPARISON: Left foot radiographs performed 05/05/17 FINDINGS: BONES: Similar appearance of the foot with osseous destruction of the proximal 5th phalanx. Degenerative changes evident. No acute displaced fracture identified. JOINTS: No dislocation. SOFT TISSUES: Soft tissue swelling. No evidence of radiopaque foreign body. Vascular calcifications. OTHER FINDINGS: None. IMPRESSION: Osseous destruction involving the proximal 5th phalanx. Soft tissue swelling. Appearance similar to prior study. Correlate clinically for osteomyelitis.
[2017-05-16] MEDS ORDERED: Vancomycin 500mg in NS 500 MG/100 ML BAG IVPB SCH (10:00)
[2017-05-17 06:55] LABS: BARBITURATES, UR NEGATIVE (NEGATIVE); BENZODIAZEPINES, UR POSITIVE (NEGATIVE); OPIATES, UR POSITIVE (NEGATIVE); PHENCYCLIDINE, UR NEGATIVE (NEGATIVE)
== END 2017-05-16 04:12 | disposition short-term general hospital (02) ==
LOC: ED 23:40 → UNDOADMIN 05-16 02:22 → ERH 05-16 02:22
DX: E11.621 Type 2 diabetes mellitus with foot ulcer (principal); L97.529 Non-pressure chronic ulcer of other part of left foot with unspecified severity; N28.9 Disorder of kidney and ureter, unspecified; M86.8X7 Other osteomyelitis, ankle and foot
CPT/HCPCS: 73630; 80053; 85025; 87040; 96361; 96365; 96372; 96375; 99284; J1644; J1885; J2270; J2543; J7040

== ENCOUNTER 2017-05-16 22:44 | Inpatient (IN) | payer BC ==
[2017-05-16 22:59] VITALS: BMI 28.7
[2017-05-16 23:00] VITALS: O2SAT 97
[2017-05-16] MEDS ORDERED: Piperacillin/Tazobact 3.375 gm 100 ML IVPB STA (23:05)
--- NOTE | 2017-05-16 23:19 | ED PDOC ---
Arrival/HPI - General Chief Complaint: Lower Extremity Problem/Injury Time Seen by Provider: 05/16/17 23:04 Historian: Patient - History of Present Illness Narrative History of Present Illness (Text): 05/16/17 23:18 47yr old male with hx osteomyelitis to the left foot presents today with worsening left foot pain. Patient states he has just completed Levaquin at home. Patient states he is still having pain. pt states he isnt taking any medications for pain at home and needs pain medication. Pt signed out against medical advise 05/05. pt denies fever/chills. c/o severe pain to the left foot. pt states he was supposed to f/u in the wound clinic but no one ever called him. pt was admitted to hospital last night and signed out AMA, now states he wants to be admitted. C/o severe pain, wants pain medications. no other complaints. Time/Duration: > week Symptom Onset: Gradual Symptom Course: Worsening Quality: Aching, Stabbing, Throbbing Severity Level: Severe Past Medical History - Provider Review Nursing Documentation Reviewed: Yes - Travel History Have you recently traveled outside [place] w/in the past 3 mons?: No - Infectious Disease Hx of Infectious Diseases: None - Tetanus Immunization Tetanus Immunization: Unknown - Past Medical History Past Medical History: No Previous - Cardiac Hx Cardiac Disorders: Yes Hx Hypertension: Yes - Pulmonary Hx Respiratory Disorders: No - Neurological Hx Neurological Disorder: Yes HX Cerebrovascular Accident: Yes (10/26/14) Hx Transient Ischemic Attacks (TIA): Yes - HEENT Hx HEENT Disorder: No - Renal Hx Renal Disorder: No - Endocrine/Metabolic Hx Endocrine Disorders: Yes Hx Diabetes Mellitus Type 2: Yes - Hematological/Oncological Hx Blood Disorders: No - Integumentary Hx Dermatological Disorder: No - Musculoskeletal/Rheumatological Hx Falls: No - Gastrointestinal Hx Gastrointestinal Disorders: No - Genitourinary/Gynecological Hx Genitourinary Disorders: No - Psychiatric Hx Psychophysiologic Disorder: Yes Hx Anxiety: Yes Hx Depression: Yes Hx Substance Use: Yes (heroin, xanax, suboxone. Current marijuana use) - Past Surgical History Past Surgical History: No Previous - Surgical History Hx Cardiac Catheterization: Yes Hx Coronary Stent: No Hx Joint Replacement: Yes (Right knee) Hx Musculoskeletal Surgery: Yes Hx Orthopedic Surgery: Yes (multiple implants 6 rods 20 screws) - Anesthesia Hx Anesthesia: Yes Hx Anesthesia Reactions: No Hx Malignant Hyperthermia: No - Suicidal Assessment Feels Threatened In Home Enviroment: No Family/Social History - Physician Review Nursing Documentation Reviewed: Yes Family/Social History: Unknown Family HX Smoking Status: Heavy Smoker > 10 Cigarettes Daily Hx Alcohol Use: Yes (occasional) Hx Substance Use: Yes (heroin, xanax, suboxone. Current marijuana use) Substance used: recovering cocaine and heroin Hx Substance Use Treatment: No Allergies/Home Meds Allergies/Adverse Reactions: Allergies No Known Allergies Allergy (Verified 05/15/17 19:32) Home Medications: Home Meds Medication Instructions Recorded Confirmed Alprazolam [Xanax] 2 mg PO TID 07/29/16 05/15/17 Quetiapine Fumarate [Seroquel] 100 mg PO DAILY 07/29/16 05/15/17 Gabapentin [Neurontin] 300 mg PO TID 08/16/16 05/15/17 MetFORMIN [glucoPHAGE] 1,000 mg PO DAILY 08/16/16 05/15/17 Review of Systems - Review of Systems Constitutional: absent: Fatigue, Fevers Respiratory: absent: SOB, Cough Cardiovascular: absent: Chest Pain Gastrointestinal: absent: Abdominal Pain, Vomiting Musculoskeletal: Arthralgias Skin: Skin Lesions, Cellulitis Neurological: absent: Headache Physical Exam Vital Signs Reviewed: Yes Vital Signs Temp Pulse Resp BP Pulse Ox 05/16/17 22:59 98.9 F 106 H 20 115/47 L 97 Temperature: Afebrile Blood Pressure: Normal Pulse: Tachycardic Respiratory Rate: Normal Appearance: Positive for: Well-Appearing, Non-Toxic, Comfortable Pain Distress: None Mental Status: Positive for: Alert and Oriented X 3 - Systems Exam Head: Present: Atraumatic Neck: Present: Normal Range of Motion Respiratory/Chest: Present: Clear to Auscultation Cardiovascular: Present: Regular Rate and Rhythm Lower Extremity: Present: Other (Present: Tenderness (left foot; + ulcer noted to plantar aspect of left great toe; + edema, + tenderness, no calf tenderness; slight erythema noted to great toe. ), Swelling, Neurovascularly Intact, Capillary Refill < 2 s. No: CALF TENDERNESS, NORMAL PULSES, Deformity) Neurological: Present: GCS=15 Skin: Present: Warm, Dry Psychiatric: Present: Alert, Oriented x 3 Medical Decision Making ED Course and Treatment: 05/16/17 23:24 47yr old diabetic male with left foot pain. hx of osteomyelitis. signed out AMA may 05 and again last night. recently completed Po levaquin at home. cbc; cmp; blood cultures collected yesterday xray left foot reviewed from yesterday;FINDINGS: BONES: Similar appearance of the foot with osseous destruction of the proximal 5th phalanx. Degenerative changes evident. No acute displaced fracture identified. JOINTS: No dislocation. SOFT TISSUES: Soft tissue swelling. No evidence of radiopaque foreign body. Vascular calcifications. OTHER FINDINGS: None. IMPRESSION: Osseous destruction involving the proximal 5th phalanx. Soft tissue swelling. Appearance similar to prior study. Correlate clinically for osteomyelitis. vancomycin 500mg IV given zosyn given IV. motrin given for pain. NS iv bolus 05/16/17 02:15 will admit patient to med/surg; diabetic male, smoker, with left foot infection / toe ulcer. case discussed with dr. edouard and dr. castaneda; accepts admission. impression; toe ulcer, foot infection, renal insufficiency. admit to med/surg 05/16/17 23:25 - RAD Interpretation Radiology Orders: 05/16/17 23:37 FOOT W/O CONTRAST LEFT [MRI] Routine DUPLEX LOWER EXTRM VEIN BILAT [US] Stat - Medication Orders Current Medication Orders: Acetaminophen (Tylenol 325mg Tab) 650 mg PO Q6H PRN PRN Reason: Fever >100.4 F Albuterol Sulfate (Albuterol 0.083% Inhal [place] (2.5 Mg/3 Ml) Ud) 2.5 mg IH Q2H PRN PRN Reason: Shortness of Breath Alprazolam (Xanax) 1 mg PO TID JENN Famotidine (Pepcid) 20 mg PO BID JENN Gabapentin (Neurontin) 300 mg PO TID JENN PRN Reason: Protocol Sodium Chloride (Sodium Chloride 0.9%) 1,000 mls @ 999 mls/hr IV .Q1H1M STA Stop: 05/17/17 00:05 Piperacillin Sod/Tazobactam Sod (Zosyn 3.375 In Ns 100ml) 100 mls @ 200 mls/hr IVPB Q6 JENN PRN Reason: Protocol Stop: 05/17/17 06:29 Ibuprofen (Motrin Tab) 600 mg PO Q6H PRN PRN Reason: Pain, Mild (1-3) Insulin Human Lispro (Humalog) 0 units SC ACHS JENN PRN Reason: Protocol Quetiapine Fumarate (Seroquel) 100 mg PO DAILY JENN PRN Reason: Protocol Vancomycin HCl (Vancomycin Inj) 1 gm IVPB Q12H JENN PRN Reason: Protocol Discontinued Medications Piperacillin Sod/Tazobactam Sod (Zosyn 3.375 In Ns 100ml) 100 mls @ 200 mls/hr IVPB STAT STA PRN Reason: Protocol Stop: 05/16/17 23:34 Vancomycin HCl (Vancomycin 500mg In Ns) 500 mg in 100 mls @ 200 mls/hr IVPB Q12 JENN PRN Reason: Protocol Vancomycin HCl (Vancomycin 500mg In Ns) 500 mg in 100 mls @ 200 mls/hr IVPB STAT STA PRN Reason: Protocol Stop: 05/16/17 23:57 Ibuprofen (Motrin Tab) 600 mg PO STAT STA Stop: 05/16/17 23:26 Disposition/Present on Arrival - Present on Arrival Any Indicators Present on Arrival: No History of DVT/PE: No History of Uncontrolled Diabetes: No Urinary Catheter: No History of Decub. Ulcer: No History Surgical Site Infection Following: None - Disposition Have Diagnosis and Disposition been Completed?: Yes Diagnosis: Ulcer of toe Disposition: HOSPITALIZED Disposition Time: 23:45 Patient Plan: Admission Condition: FAIR
[2017-05-16] MEDS ORDERED: Vancomycin 500mg in NS 500 MG/100 ML BAG IVPB STA (23:29)
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
[2017-05-16] MEDS ORDERED: Albuterol 0.083% Inhal Sol (2.5 mg/3 mL) UD IH PRN (23:41)
[2017-05-16] MEDS ORDERED: Vancomycin 1 g Inj IVPB SCH (23:45)
[2017-05-17] MEDS ORDERED: Vancomycin 1gm in NS 250ml 1 GM/250 ML BAG IVPB SCH (00:15)
[2017-05-17 00:34] LABS: ADD MANUAL DIFF? NO
[2017-05-17] MEDS: Sodium Chloride 0.9% 1,000 ML IV STA ×3 (00:34→03:45)
[2017-05-17 00:39] LABS: BASO # 0.03 K/mm3 (0.0-2.0); BASO % 0.5 % (0.0-3.0); EOS # 0.2 (0.0-0.7); EOS % 2.6 % (1.5-5.0); GRAN # 3.85 (1.4-6.5); GRAN % 59.5 % (50.0-68.0); HEMATOCRIT 28.7 % (42.0-52.0); LYMPH # 2.1 (1.2-3.4); MEAN CORPUSCULAR HEMOGLOBIN 27.4 pg (25.0-35.0); MEAN CORPUSCULAR HGB CONC 33.4 g/dl (31.0-37.0); MEAN PLATELET VOLUME 9.5 fl (7.0-11.0); MONO # 0.4 (0.1-0.6); MONO % 5.4 % (1.0-6.0); PLATELET COUNT 217 10^3/uL (120.0-450.0); RED CELL DISTRIBUTION WIDTH 13.2 % (11.5-14.5); WHITE BLOOD COUNT 6.5 10^3/ul (4.5-11.0)
[2017-05-17 00:51] LABS: ALB/GLOB RATIO 1.3 (1.1-1.8); ALKALINE PHOSPHATASE 60 U/L (38-133); ALT/SGPT 22 U/L (7-56); AST/SGOT 19 U/L (15-59); BILIRUBIN,TOTAL 0.3 mg/dL (0.2-1.3); BLOOD UREA NITROGEN 31 mg/dL (7-21); CALCIUM 8.6 mg/dL (8.4-10.5); CARBON DIOXIDE 22 mmol/L (21-33); CHLORIDE 110 mmol/L (95-110); GFR AFRICAN-AMERICAN > 60; GLUCOSE,RANDOM 177 mg/dL (70-110); SODIUM 144 mmol/L (132-148); TOTAL PROTEIN 6.9 g/dL (5.8-8.3)
[2017-05-17] MEDS ORDERED: Morphine 4 mg/ml ISec IVP STA (01:02)
[2017-05-17] MEDS: Piperacillin/Tazobact 3.375 gm 100 ML IVPB SCH ×4 (01:20→06:25)
[2017-05-17 02:15] VITALS: BP 112/56; PULSE 92; RESP 18; TEMP 98.5
[2017-05-17 02:26] LABS: ERYTHROCYTE SEDIMENTATION RATE 50 mm/hr (0.0-15.0)
[2017-05-17] MEDS ORDERED: Morphine 2 mg/ml ISec IVP PRN (05:43)
[2017-05-17] MEDS ORDERED: Insulin Lispro 1 UNITS/0.01 ML SC SCH (07:30)
[2017-05-17 07:51] LABS: ADD MANUAL DIFF? NO
[2017-05-17 07:58] LABS: BASO # 0.03 K/mm3 (0.0-2.0); BASO % 0.6 % (0.0-3.0); EOS # 0.2 (0.0-0.7); EOS % 4.1 % (1.5-5.0); GRAN # 3.11 (1.4-6.5); GRAN % 58.3 % (50.0-68.0); HEMATOCRIT 31.4 % (42.0-52.0); LYMPH # 1.6 (1.2-3.4); LYMPH % 30.3 % (22.0-35.0); MEAN CELL VOLUME 81.6 fL (80.0-105.0); MEAN CORPUSCULAR HEMOGLOBIN 26.8 pg (25.0-35.0); MEAN CORPUSCULAR HGB CONC 32.8 g/dl (31.0-37.0); MEAN PLATELET VOLUME 9.6 fl (7.0-11.0); MONO # 0.4 (0.1-0.6); MONO % 6.7 % (1.0-6.0); PLATELET COUNT 212 10^3/uL (120.0-450.0); RED CELL DISTRIBUTION WIDTH 13.2 % (11.5-14.5); WHITE BLOOD COUNT 5.3 10^3/ul (4.5-11.0)
[2017-05-17 08:06] LABS: ALB/GLOB RATIO 1.3 (1.1-1.8); ALKALINE PHOSPHATASE 59 U/L (38-133); ALT/SGPT 24 U/L (7-56); AST/SGOT 10 U/L (15-59); BILIRUBIN,TOTAL 0.3 mg/dL (0.2-1.3); BLOOD UREA NITROGEN 22 mg/dL (7-21); CALCIUM 8.6 mg/dL (8.4-10.5); CARBON DIOXIDE 22 mmol/L (21-33); CHLORIDE 112 mmol/L (95-110); GFR AFRICAN-AMERICAN > 60; GLUCOSE,RANDOM 159 mg/dL (70-110); SODIUM 145 mmol/L (132-148); TOTAL PROTEIN 6.2 g/dL (5.8-8.3)
[2017-05-17] MEDS ORDERED: Vancomycin 500mg in NS 500 MG/100 ML BAG IVPB SCH (10:00)
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
--- NOTE | 2017-05-17 14:03 | CP.PCM.DIS ---
<Henrique Lakhani - Last Filed: 05/17/17 14:38> Provider - Provider Date of Admission: 05/16/17 23:43 Attending physician: Angel Andersen MD Consults: Consults Juan Miguel Deng Time Spent in preparation of Discharge (in minutes): 45 Hospital Course - Lab Results Lab Results: Most Recent Lab Values WBC 5.3 10^3/ul (4.5-11.0) 05/17/17 07:00 RBC 3.85 10^6/uL (3.5-6.1) 05/17/17 07:00 Hgb 10.3 gm/dL (14.0-18.0) L 05/17/17 07:00 Hct 31.4 % (42.0-52.0) L 05/17/17 07:00 MCV 81.6 fL (80.0-105.0) 05/17/17 07:00 MCH 26.8 pg (25.0-35.0) 05/17/17 07:00 MCHC 32.8 g/dl (31.0-37.0) 05/17/17 07:00 RDW 13.2 % (11.5-14.5) 05/17/17 07:00 Plt Count 212 10^3/uL (120.0-450.0) 05/17/17 07:00 MPV 9.6 fl (7.0-11.0) 05/17/17 07:00 Gran % 58.3 % (50.0-68.0) 05/17/17 07:00 Lymph % (Auto) 30.3 % (22.0-35.0) 05/17/17 07:00 Gray % (Auto) 6.7 % (1.0-6.0) H 05/17/17 07:00 Eos % (Auto) 4.1 % (1.5-5.0) 05/17/17 07:00 Baso % (Auto) 0.6 % (0.0-3.0) 05/17/17 07:00 Gran # 3.11 (1.4-6.5) 05/17/17 07:00 Lymph # 1.6 (1.2-3.4) 05/17/17 07:00 Gray # 0.4 (0.1-0.6) 05/17/17 07:00 Eos # 0.2 (0.0-0.7) 05/17/17 07:00 Baso # 0.03 K/mm3 (0.0-2.0) 05/17/17 07:00 ESR 50 mm/hr (0.0-15.0) H 05/17/17 00:10 D-Dimer, Quantitative 0.79 mg/L FEU (0-0.50) H 05/17/17 00:10 Sodium 145 mmol/L (132-148) 05/17/17 07:00 Potassium 4.0 mmol/L (3.6-5.0) 05/17/17 07:00 Chloride 112 mmol/L (95-110) H 05/17/17 07:00 Carbon Dioxide 22 mmol/L (21-33) 05/17/17 07:00 Anion Gap 15 (10-20) 05/17/17 07:00 BUN 22 mg/dL (7-21) H 05/17/17 07:00 Creatinine 1.3 mg/dL (0.5-1.4) 05/17/17 07:00 Est GFR ( Amer) > 60 05/17/17 07:00 Est GFR (Non-Af Amer) 59 05/17/17 07:00 Random Glucose 159 mg/dL (70-110) H 05/17/17 07:00 Calcium 8.6 mg/dL (8.4-10.5) 05/17/17 07:00 Total Bilirubin 0.3 mg/dL (0.2-1.3) 05/17/17 07:00 AST 10 U/L (15-59) L 05/17/17 07:00 ALT 24 U/L (7-56) 05/17/17 07:00 Alkaline Phosphatase 59 U/L (38-133) 05/17/17 07:00 C-React Prot High Sens > 15.00 mg/L (1.00-3.00) H 05/17/17 00:10 Total Protein 6.2 g/dL (5.8-8.3) 05/17/17 07:00 Albumin 3.5 g/dL (3.0-4.8) 05/17/17 07:00 Globulin 2.7 gm/dL 05/17/17 07:00 Albumin/Globulin Ratio 1.3 (1.1-1.8) 05/17/17 07:00 - Hospital Course Hospital Course: Attending: Dr. Andersen Admit date- 05/16/17 DC date- Pt left AMA on 05/17/17 Procedures- none Pt left AMA [facility]ults [facility] Dis[facility] dx 1. Osteomyelitis 2. Drug abuse 3. MARY 4. DM 5. HTN 6. Depression 7. Leg swelling HPI: see h/p Labs: see lab data section Hospital course This patient eloped from the hospital before he could even get up to his room at 3am this morning. He is pain/drug seeking. He would not let the night resident examine at him at 3am in the morning when he had been admitted. Patient frequently AMA's from the hospital: was seen my psychiatry on this last admission in the ICU and was deemed to have capacity on the last admission to leave AMA. Patient has been having left great toe pain for the past few weeks which has gotten worse. He denies fevers/chills, CARDONA, CP, SOB, abdominal pain, N/V/D, dysuria/freq/urg, or lower extremity pain/swelling. Please refer to all other labs from admission at 3am today and orders. patient agreed to have no opiates on this admission. he verbalized understanding that we will not be giving him opiates for pain control outside of any surgeries that may or may not happen. DC meds N/A DC instructions N/A - Date & Time of H&P Date of H&P: 05/16/17 Time of H&P: 23:35 Discharge Exam - Head Exam Head Exam: ATRAUMATIC, NORMAL INSPECTION, NORMOCEPHALIC - Eye Exam Eye Exam: EOMI - ENT Exam ENT Exam: Mucous Membranes Moist - Neck Exam Neck exam: Normal Inspection - Respiratory Exam Respiratory Exam: NORMAL BREATHING PATTERN, UNREMARKABLE - Cardiovascular Exam Cardiovascular Exam: +S1, +S2 - GI/Abdominal Exam GI & Abdominal Exam: Normal Bowel Sounds - Neurological Exam Neurological exam: Alert, Oriented x3 - Psychiatric Exam Psychiatric exam: Flat Affect - Skin Skin Exam: Dry, Intact, Normal Color, Warm Discharge Plan - Follow Up Plan Condition: GUARDED Disposition: AGAINST MEDICAL ADVICE <Angel Andersen A - Last Filed: 05/17/17 18:24> Provider - Provider Date of Admission: 05/16/17 23:43 Attending physician: Angel Andersen MD Hospital Course - Lab Results Lab Results: Most Recent Lab Values WBC 5.3 10^3/ul (4.5-11.0) 05/17/17 07:00 RBC 3.85 10^6/uL (3.5-6.1) 05/17/17 07:00 Hgb 10.3 gm/dL (14.0-18.0) L 05/17/17 07:00 Hct 31.4 % (42.0-52.0) L 05/17/17 07:00 MCV 81.6 fL (80.0-105.0) 05/17/17 07:00 MCH 26.8 pg (25.0-35.0) 05/17/17 07:00 MCHC 32.8 g/dl (31.0-37.0) 05/17/17 07:00 RDW 13.2 % (11.5-14.5) 05/17/17 07:00 Plt Count 212 10^3/uL (120.0-450.0) 05/17/17 07:00 MPV 9.6 fl (7.0-11.0) 05/17/17 07:00 Gran % 58.3 % (50.0-68.0) 05/17/17 07:00 Lymph % (Auto) 30.3 % (22.0-35.0) 05/17/17 07:00 Gray % (Auto) 6.7 % (1.0-6.0) H 05/17/17 07:00 Eos % (Auto) 4.1 % (1.5-5.0) 05/17/17 07:00 Baso % (Auto) 0.6 % (0.0-3.0) 05/17/17 07:00 Gran # 3.11 (1.4-6.5) 05/17/17 07:00 Lymph # 1.6 (1.2-3.4) 05/17/17 07:00 Gray # 0.4 (0.1-0.6) 05/17/17 07:00 Eos # 0.2 (0.0-0.7) 05/17/17 07:00 Baso # 0.03 K/mm3 (0.0-2.0) 05/17/17 07:00 ESR 50 mm/hr (0.0-15.0) H 05/17/17 00:10 D-Dimer, Quantitative 0.79 mg/L FEU (0-0.50) H 05/17/17 00:10 Sodium 145 mmol/L (132-148) 05/17/17 07:00 Potassium 4.0 mmol/L (3.6-5.0) 05/17/17 07:00 Chloride 112 mmol/L (95-110) H 05/17/17 07:00 Carbon Dioxide 22 mmol/L (21-33) 05/17/17 07:00 Anion Gap 15 (10-20) 05/17/17 07:00 BUN 22 mg/dL (7-21) H 05/17/17 07:00 Creatinine 1.3 mg/dL (0.5-1.4) 05/17/17 07:00 Est GFR ( Amer) > 60 05/17/17 07:00 Est GFR (Non-Af Amer) 59 05/17/17 07:00 Random Glucose 159 mg/dL (70-110) H 05/17/17 07:00 Calcium 8.6 mg/dL (8.4-10.5) 05/17/17 07:00 Total Bilirubin 0.3 mg/dL (0.2-1.3) 05/17/17 07:00 AST 10 U/L (15-59) L 05/17/17 07:00 ALT 24 U/L (7-56) 05/17/17 07:00 Alkaline Phosphatase 59 U/L (38-133) 05/17/17 07:00 C-React Prot High Sens > 15.00 mg/L (1.00-3.00) H 05/17/17 00:10 Total Protein 6.2 g/dL (5.8-8.3) 05/17/17 07:00 Albumin 3.5 g/dL (3.0-4.8) 05/17/17 07:00 Globulin 2.7 gm/dL 05/17/17 07:00 Albumin/Globulin Ratio 1.3 (1.1-1.8) 05/17/17 07:00 Attending/Attestation - Attestation I have personally seen and examined this patient.: Yes I have fully participated in the care of the patient.: Yes I have reviewed all pertinent clinical information, including history, physical exam and plan: Yes Notes (Text): 05/17/17 18:15 47 year old male with past medical history of hypertension, diabetes, CAD, anxiety, depression and history of IVDA presented last night with left toe pain. He was admitted yesterday to rule out osteomyelitis but eloped from the ER. This time in ER he had xray suspicious for OM. He was started on iv antibiotics and seen by podiatry. He went for MRI this morning. When I examined him this morning during rounds with my resident he was lethargic, possibly due to xanax and morphine he received earlier. These were held and apparently later in the morning patient was more alert and demanding pain medications. He and girlfriend were upset when it was explained that these were held due to lethargy. Patient apparently signed out AMA at that time. I did speak with his pmd Dr. Sears earlier this morning who confirmed patient has history of signing out AMA with suspected substance abuse. Patient follows up with pmd Dr. Sears and craft superintendent Dr. Bullard. Overall prognosis is poor due to substance abuse and noncompliance. Angel Andersen MD Hospitalist.
--- NOTE | 2017-05-17 16:52 | MRI ---
PROCEDURE: MRI Left Foot HISTORY: Evaluate for osteomyelitis. COMPARISON: Comparison is made to the previous x-ray dated 05/16/2017. TECHNIQUE: Multiecho multiplanar sequences were performed through the left foot without the use of intravenous contrast. FINDINGS: BONES: There is abnormal bone marrow signal and cortical erosion seen at the distal phalanx of the left big toe suspicious for osteomyelitis. There is also bony destruction and bone marrow edema at the proximal phalanx of the 5th toe also suspicious for osteomyelitis. MUSCLES: Mild increased signal in the mid and distal left foot muscles suggestive of mild myositis more prominent laterally. SOFT TISSUES: Mild diffuse soft tissue edema. No evidence of discrete fluid collection in this noncontrast study. LISFRANC LIGAMENT: No evidence of acute pathology. PLANTAR PLATE: The 5th toe plantar plate is not clearly visualized. Otherwise no evidence of acute pathology. . EXTENSOR TENDONS: No acute pathology. FLEXOR TENDONS: No acute pathology. OTHER FINDINGS: None. IMPRESSION: Findings suspicious for osteomyelitis at the distal phalanx of the left big toe and proximal phalanx of the 5th toe as described above. Mild soft tissue edema without evidence of discrete fluid collection or abscess formation in this noncontrast study.
--- NOTE | 2017-05-17 20:01 | US ---
HISTORY: Leg pain and swelling. Evaluate for DVT PHYSICIAN(S): Madhu Stewart MD. TECHNIQUE: Duplex sonography and color-flow Doppler with graded compression were used to evaluate the deep venous systems of both lower extremities. FINDINGS: The visualized deep venous systems of both lower extremities are sonographically normal and compressible. Normal wave forms and augmentation are seen. There is no sonographic evidence for deep venous thrombosis in the visualized segments of both lower extremities. IMPRESSION: No sonographic evidence for deep venous thrombosis in the visualized segments of both lower extremities.
== END 2017-05-17 13:21 | disposition left against medical advice (07) | DRG 638 ==
LOC: ED 22:44 → ERH 23:43 → 3RSO 05-17 03:08
PROVIDERS: ADMIT Internal Medicine; ATTEND Internal Medicine
DX: E11.69 Type 2 diabetes mellitus with other specified complication (principal); M86.8X7 Other osteomyelitis, ankle and foot; N17.9 Acute kidney failure, unspecified; E11.621 Type 2 diabetes mellitus with foot ulcer; I10 Essential (primary) hypertension; E86.0 Dehydration; F32.89 Other specified depressive episodes; F41.9 Anxiety disorder, unspecified; G89.29 Other chronic pain; I25.10 Atherosclerotic heart disease of native coronary artery without angina pectoris; L08.9 Local infection of the skin and subcutaneous tissue, unspecified; F17.210 Nicotine dependence, cigarettes, uncomplicated; L97.529 Non-pressure chronic ulcer of other part of left foot with unspecified severity; Z76.5 Malingerer [conscious simulation]; Z79.4 Long term (current) use of insulin; Z79.84 Long term (current) use of oral hypoglycemic drugs; Z79.899 Other long term (current) drug therapy; Z86.73 Personal history of transient ischemic attack (TIA), and cerebral infarction without residual deficits; Z91.19 Patient's noncompliance with other medical treatment and regimen; Z96.651 Presence of right artificial knee joint; F12.90 Cannabis use, unspecified, uncomplicated; R40.2412 Glasgow coma scale score 13-15, at arrival to emergency department; G62.9 Polyneuropathy, unspecified; F43.10 Post-traumatic stress disorder, unspecified; B95.7 Other staphylococcus as the cause of diseases classified elsewhere

== ENCOUNTER 2017-06-09 06:28 | Inpatient (IN) | payer BC ==
[2017-06-09] MEDS ORDERED: Lidocaine 2% Inj (20ml) ONE (07:24)
--- NOTE | 2017-06-09 07:27 | CP.PCM.PN ---
<Lila Martin - Last Filed: 06/09/17 10:11> Subjective - Date & Time of Evaluation Date of Evaluation: 06/09/17 Time of Evaluation: 07:23 - Subjective Subjective: 47 year old male was seen at bedside in [facility] for left hallux amputation. Patient has a bone infection to his left hallux and his left foot gives him a lot of pain. Patient states that he is tired as he hasn't slept for 3 days due to anxiety. NPO status confirmed. Patient denies any n/v/f/c/sob/cp. Objective - Constitutional Appears: Non-toxic, No Acute Distress - Extremities Exam Additional comments: Left lower extremity focused exam: Derm: Ulcer noted to the left hallux, granular base, hyperkertotic rim Vasc: DP and PT pulses faintly palpable, Skin temperature warm to warm from proximal to distal Neuro:Gross sensation diminished to left foot Ortho:Mild pain on palpation to left hallux - Psychiatric Exam Psychiatric exam: Normal Affect, Normal Mood Assessment and Plan - Assessment and Plan (Free Text) Assessment: 47 year old male with left hallux ulceration to [facility] for left hallux amputation Plan: Pt was seen and examined in [facility] Pt NPO status was confirmed All Pre-op testing and optimization was in the chart Pt has exhausted all conservative treatment at this time and is opting for surgical intervention Pt was explained procedure and post-operative course All pt's questions were answered to satisfaction No guarantees were made Pt understands all risks, benefits and complications of procedure Pt in MRSA positive Pt will be admitted and followed while in house Pt will follow-up with Dr. Bullard <Elisabeth Bullard - Last Filed: 06/13/17 17:21> Objective - Vital Signs/Intake and Output Vital Signs (last 24 hours): Temp Pulse Resp BP Pulse Ox 97.9 F 85 20 115/65 96 06/12/17 07:42 06/12/17 09:03 06/12/17 07:42 06/12/17 09:03 06/12/17 07:42 - Labs Labs: 06/10/17 10:23 06/11/17 06:45 Attending/Attestation - Attestation I have personally seen and examined this patient.: Yes I have fully participated in the care of the patient.: Yes I have reviewed all pertinent clinical information, including history, physical exam and plan: Yes
[2017-06-09] MEDS ORDERED: Bupivacaine 0.5% Inj(30mL) ONE (07:44)
[2017-06-09] MEDS ORDERED: Propofol 10 mg/ml Inj (20 ML) ONE ×2 (07:47→07:56)
[2017-06-09] MEDS ORDERED: Lidocaine 1% Inj (20ml) ONE (07:48)
[2017-06-09] MEDS ORDERED: Vancomycin 1 g Inj ONE (07:49)
[2017-06-09] MEDS ORDERED: Gentamicin 80 mg/2mL Inj. ONE (07:55)
[2017-06-09] MEDS ORDERED: HYDROmorphone 0.5 mg/0.5 ml ISec IVP PRN (08:57)
[2017-06-09] MEDS ORDERED: Sodium Chloride 0.9% 1,000 ML IV SCH (09:00)
--- NOTE | 2017-06-09 09:04 | PCM.SURG1 ---
Surgeon's Initial Post Op Note - Surgeon's Notes Surgeon: Dr. Bullard DPM Internet Designer: Dr. Martin DPM PGY-2 Type of Anesthesia: IV Sedation, Local Anesthesia Administered By: Dr. Tapia Pre-Operative Diagnosis: left hallux osteomyelitis Operative Findings: see dictation. M: 2-0 vicryl, 3-0 nylon Post-Operative Diagnosis: same Operation Performed: left hallux amputation Specimen/Specimens Removed: left hallux Estimated Blood Loss: EBL {In ML}: 5 Blood Products Given: N/A Drains Used: No Drains Post-Op Condition: Good Date of Surgery/Procedure: 06/09/17 Time of Surgery/Procedure: 07:45
[2017-06-09] MEDS ORDERED: HYDROmorphone 0.5 mg/0.5 ml ISec ONE ×2 (09:27→09:45)
[2017-06-09] MEDS ORDERED: HYDROmorphone 0.5 mg/0.5 ml ISec IVP ONE ×2 (09:29→09:47)
--- NOTE | 2017-06-09 10:00 | PCM.OP ---
Operative Report - Operative Report Date of Surgery/Procedure: 06/09/17 Time of Surgery/Procedure: 07:45 Surgeon: Dr. Bullard DPEarl Accountant Cost: Dr. Veronica PARR PGY-1 Anesthesia/Sedation: Dr. Purcell/IV sedation with local Pre-Operative Diagnosis: left hallux osteomyelitis Post-Operative Diagnosis: left hallux osteomyelitis Indication for Surgery: Indications: The patient is a 47 year-old male with the above diagnoses. The patient has exhausted all conservative treatment at this time and now requires surgical intervention. The patient signed the consent after careful explanation of risks, benefits, complication and alternatives for surgical procedure. No guarantees were given nor implied. NPO status was confirmed prior to taking patient to the OR. Operative Findings: Preparation: The patient was brought in to the operating room and placed on the operating room table in a supine position. Timeout was performed for identification of the correct patient and procedure. After induction IV sedation, the patient received a total of 8 mL of 2% lidocaine plain in a local block type fashion to the left hallux. The left foot was then prepped and draped in normal sterile manner and the procedure began. No tourniquet was used during the procedure. Procedure: Attention was then directed to the dorsal aspect of the left hallux where an incision was made circumferentially at the level of the IPJ using a # 15 blade.The incision was then extended down through the subcutaneous layers down to the level of bone. Using a bone clamp to stabilize the digit, the hallux was then disarticulated from the at the level of the IPJ and passed of the field and sent for pathology. Next, the soft tissue was freed from the distal aspect of proximal phalanx using a #15 blade and pick-ups. Next, utilizing a sagittal saw, the distal aspect of the proximal phalanx was resected and passed off the field and sent to pathology. Next utilizing a simpulse, the surgical site was then irrigated with copious amounts of normal sterile saline. The subcutaneous tissue was approximated with #2-0 vicryl, the skin was approximated using 3-0 nylon in a combination of simple and mattress type suture technique. A postoperative block consisting of 4 ml of 0.5% marcaine plain was given in a local block fashion to the left great toe. The surgical site was then dressed with adaptic, 4x4 gauze, kerlix and a light JELANI compressive bandage. Procedure/Operation Description: left hallux amputation Estimated Blood Loss: 5 Complications: none Specimen: left hallux bone and soft tissue Discharge & Condition: Postoperative Condition: The patient tolerated the anesthesia and procedure well and was escorted to the recovery room with vital signs stable and neurovascular status intact to the left foot. Patient is to remain partial weight bearing to left heel with a forefoot offloading shote. Podiatry will continue to follow patient while in house. Patient will be followed daily while in house and patient will follow up with Dr. Bullard in the [facility] [place] upon discharge.
--- NOTE | 2017-06-09 11:13 | RAD ---
PROCEDURE: Left Foot Radiographs. HISTORY: s/p left foot surgery COMPARISON: None. FINDINGS: BONES: There has been amputation at the level of the 1st proximal phalanx. There is previous amputation or destruction of the 5th proximal phalanx JOINTS: Normal. SOFT TISSUES: Normal. OTHER FINDINGS: None. IMPRESSION: There has been amputation at the level of the 1st proximal phalanx. There is previous amputation or destruction of the 5th proximal phalanx
[2017-06-09] MEDS: HYDROmorphone 2 mg/ml ISec IVP PRN ×3 (11:34→20:31)
--- NOTE | 2017-06-09 12:03 | CP.PCM.CON ---
History of Present Illness - History of Present Illness History of Present Illness: 47 year old male with PMH of DM, HTN, CAD, history of TIA, history of depression and anxiety, history of IV drug use has been having pain in his left hallux for almost a month now, and has been in this hospital but has signed out AMA previously. This time he follows up with Podiatry and was found to have osteomyelitis of the toe and he just underwent left hallux amputation this morning. Infectious diseases consult is requested to further evaluate and manage. He is currently comfortable in bed, not in distress, afebrile, pain in the foot controlled by pain meds, no nausea or vomiting, no headache or dizziness, no chest pain, no SOB, no cough or colds, no abdominal pain, no diarrhea, no dysuria. Review of Systems - Review of Systems All systems: reviewed and no additional remarkable complaints except (as per HPI ) Past Patient History - Infectious Disease Hx of Infectious Diseases: None - Tetanus Immunizations Tetanus Immunization: Unknown - Past Medical History & Family History Past Medical History?: Yes - Past Social History Smoking Status: Current Some Days Smoker - CARDIAC Hx Pacemaker: No - PULMONARY Hx Asthma: Yes Hx Chronic Obstructive Pulmonary Disease (COPD): Yes - NEUROLOGICAL Hx Paralysis: No - HEENT Hx HEENT Problems: No - RENAL Hx Chronic Kidney Disease: No - ENDOCRINE/METABOLIC Hx Diabetes Mellitus Type 2: Yes - HEMATOLOGICAL/ONCOLOGICAL Hx Blood Transfusions: No - INTEGUMENTARY Hx Dermatological Problems: No - MUSCULOSKELETAL/RHEUMATOLOGICAL Hx Musculoskeletal Disorders: Yes (Hx of lumbar sx. Left hip sx and rt knee sx.) - GASTROINTESTINAL Hx Gastrointestinal Disorders: No - GENITOURINARY/GYNECOLOGICAL Hx Genitourinary Disorders: No - PSYCHIATRIC Hx Emotional Abuse: No Hx Physical Abuse: No Hx Substance Use: Yes - SURGICAL HISTORY Hx Surgeries: Yes - ANESTHESIA Hx Anesthesia Reactions: No Hx Malignant Hyperthermia: No Meds Allergies/Adverse Reactions: Allergies Allergy/AdvReac Type Severity Reaction Status Date / Time No Known Allergies Allergy Verified 05/15/17 19:32 - Medications Medications: Current Medications Alprazolam (Xanax) 2 mg PO QID PRN; Protocol PRN Reason: Anxiety Hydromorphone HCl (Dilaudid) 2 mg IVP Q4H PRN PRN Reason: Pain, severe (8-10) Vancomycin HCl (Vancomycin 1gm) 1 gm in 250 mls @ 167 mls/hr IVPB Q12H [facility] PRN Reason: Protocol Losartan Potassium (Cozaar) 50 mg PO DAILY [facility] Metformin HCl (Glucophage) 1,000 mg PO DAILY [facility] Ondansetron HCl (Zofran Inj) 4 mg IVP ONCE PRN PRN Reason: Nausea/Vomiting Quetiapine Fumarate (Seroquel) 100 mg PO HS [facility] PRN Reason: Protocol Sitagliptin Phosphate (Januvia) 100 mg PO DAILY [facility] Physical Exam - Constitutional Appears: Non-toxic, No Acute Distress - Head Exam Head Exam: NORMAL INSPECTION - ENT Exam ENT Exam: Mucous Membranes Moist - Neck Exam Neck exam: Negative for: Lymphadenopathy, Meningismus - Respiratory Exam Respiratory Exam: Decreased Breath Sounds - Cardiovascular Exam Cardiovascular Exam: +S1, +S2 - GI/Abdominal Exam GI & Abdominal Exam: Soft. absent: Tenderness - Extremities Exam Additional comments: left foot with dry dressings in place Results - Vital Signs Recent Vital Signs: Last Vital Signs Temp 98.4 F 06/09/17 09:54 Pulse 79 06/09/17 09:54 Resp 18 06/09/17 09:54 BP 102/67 06/09/17 09:54 Pulse Ox 100 06/09/17 09:54 - Labs Labs: Laboratory Results - last 24 hr 06/09/17 07:11 POC Glucose (mg/dL) 120 H Assessment & Plan - Assessment and Plan (Free Text) Plan: Assessment Left hallux osteomyelitis S/P amputation today DM HTN CAD history of TIA history of depression and anxiety history of IV drug use Plan started patient on Vancomycin pending bone cx and pathology will monitor clinically
--- NOTE | 2017-06-09 13:15 | CP.PCM.CON ---
History of Present Illness - History of Present Illness History of Present Illness: 47 yo male Type II DM s/p elective amput L great toe for OM, no complications, pt awake and alert, no c/o pain Past Patient History - Infectious Disease Hx of Infectious Diseases: None - Tetanus Immunizations Tetanus Immunization: Unknown - Past Medical History & Family History Past Medical History?: Yes - Past Social History Smoking Status: Current Some Days Smoker - CARDIAC Hx Hypertension: Yes Hx Pacemaker: No - PULMONARY Hx Asthma: Yes Hx Chronic Obstructive Pulmonary Disease (COPD): Yes - NEUROLOGICAL Hx Paralysis: No - HEENT Hx HEENT Problems: No - RENAL Hx Chronic Kidney Disease: No - ENDOCRINE/METABOLIC Hx Diabetes Mellitus Type 2: Yes - HEMATOLOGICAL/ONCOLOGICAL Hx Blood Transfusions: No - INTEGUMENTARY Hx Dermatological Problems: No - MUSCULOSKELETAL/RHEUMATOLOGICAL Hx Musculoskeletal Disorders: Yes (Hx of lumbar sx. Left hip sx and rt knee sx.) - GASTROINTESTINAL Hx Gastrointestinal Disorders: No - GENITOURINARY/GYNECOLOGICAL Hx Genitourinary Disorders: No - PSYCHIATRIC Hx Emotional Abuse: No Hx Physical Abuse: No Hx Substance Use: Yes - SURGICAL HISTORY Hx Surgeries: Yes - ANESTHESIA Hx Anesthesia Reactions: No Hx Malignant Hyperthermia: No Meds Allergies/Adverse Reactions: Allergies Allergy/AdvReac Type Severity Reaction Status Date / Time No Known Allergies Allergy Verified 05/15/17 19:32 - Medications Medications: Current Medications Alprazolam (Xanax) 2 mg PO QID PRN; Protocol PRN Reason: Anxiety Hydromorphone HCl (Dilaudid) 2 mg IVP Q4H PRN PRN Reason: Pain, severe (8-10) Last Admin: 06/09/17 11:34 Dose: 2 mg Vancomycin HCl (Vancomycin 1gm) 1 gm in 250 mls @ 167 mls/hr IVPB Q12H JENN PRN Reason: Protocol Losartan Potassium (Cozaar) 50 mg PO DAILY [facility] Last Admin: 06/09/17 11:33 Dose: 50 mg Metformin HCl (Glucophage) 1,000 mg PO DAILY [facility] Last Admin: 06/09/17 11:35 Dose: 1,000 mg Ondansetron HCl (Zofran Inj) 4 mg IVP ONCE PRN PRN Reason: Nausea/Vomiting Quetiapine Fumarate (Seroquel) 100 mg PO [facility] PRN Reason: Protocol Sitagliptin Phosphate (Januvia) 100 mg PO DAILY [facility] Last Admin: 06/09/17 11:34 Dose: 100 mg Physical Exam - Constitutional Appears: Well - Head Exam Head Exam: ATRAUMATIC, NORMAL INSPECTION - Eye Exam Eye Exam: EOMI, Normal appearance, PERRL - ENT Exam ENT Exam: Mucous Membranes Moist - Neck Exam Neck exam: Positive for: Normal Inspection - Respiratory Exam Respiratory Exam: Clear to Auscultation Bilateral, NORMAL BREATHING PATTERN - Cardiovascular Exam Cardiovascular Exam: REGULAR RHYTHM - GI/Abdominal Exam GI & Abdominal Exam: Normal Bowel Sounds, Soft - Extremities Exam Additional comments: s/p amput L great toe, dressing clean and intact - Neurological Exam Neurological exam: Alert, Oriented x3 Results - Vital Signs Recent Vital Signs: Last Vital Signs Temp 98.4 F 06/09/17 09:54 Pulse 77 06/09/17 11:33 Resp 18 06/09/17 09:54 BP 119/68 06/09/17 11:33 Pulse Ox 100 06/09/17 09:54 - Labs Labs: Laboratory Results - last 24 hr 06/09/17 07:11 POC Glucose (mg/dL) 120 H Assessment & Plan (1) Osteomyelitis of foot Status: Acute (2) Type II diabetes mellitus Status: Acute - Assessment and Plan (Free Text) Plan: contine post-op care, IV Abx - Date & Time Date: 06/09/17 Time: 12:30
[2017-06-09] MEDS: Vancomycin 1gm in NS 250ml 1 GM/250 ML BAG IVPB SCH (16:31)
[2017-06-09] MEDS: Insulin Reg-LOW-Coverage SC SCH ×2 (16:32→22:34)
[2017-06-09] MEDS ORDERED: Oxycodone/Acetaminophen 10/325 mg Tab PO PRN (17:41)
[2017-06-09 18:31] VITALS: BMI 26.7
--- NOTE | 2017-06-09 23:16 | CP.PCM.PN ---
Subjective - Date & Time of Evaluation Date of Evaluation: 06/09/17 Time of Evaluation: 23:14 - Subjective Subjective: S:States that he is getting seroquel 300 mg PO at home. Requests right dose. Has no other complaints. Pertinent medical record was reviewed. O: Last Vital Signs 3 Temp 97.8 F 06/09/17 18:21 Pulse 77 06/09/17 18:21 Resp 18 06/09/17 18:21 BP 119/68 06/09/17 18:21 Pulse Ox 100 06/09/17 09:54 Awake, alert,not in distress. LUNGS:Normal breathing pattern. A:Depression. P:Seroquel 300 mg PO now. Objective - Vital Signs/Intake and Output Vital Signs (last 24 hours): Temp Pulse Resp BP Pulse Ox 97.8 F 77 18 119/68 100 06/09/17 18:21 06/09/17 18:21 06/09/17 18:21 06/09/17 18:21 06/09/17 09:54 Intake and Output: 06/09/17 06/10/17 18:59 06:59 Intake Total 540 Balance 540 - Medications Medications: Current Medications Alprazolam (Xanax) 2 mg PO QID PRN; Protocol PRN Reason: Anxiety Hydromorphone HCl (Dilaudid) 2 mg IVP Q4H PRN PRN Reason: Pain, severe (8-10) Last Admin: 06/09/17 20:31 Dose: 2 mg Vancomycin HCl (Vancomycin 1gm) 1 gm in 250 mls @ 167 mls/hr IVPB Q12H [facility] PRN Reason: Protocol Last Admin: 06/09/17 16:31 Dose: 167 mls/hr Insulin Human Regular (Humulin R Low) 0 units SC ACHS [facility] PRN Reason: Protocol Last Admin: 06/09/17 22:34 Dose: Not Given Losartan Potassium (Cozaar) 50 mg PO DAILY [facility] Last Admin: 06/09/17 11:33 Dose: 50 mg Metformin HCl (Glucophage) 1,000 mg PO DAILY [facility] Last Admin: 06/09/17 11:35 Dose: 1,000 mg Ondansetron HCl (Zofran Inj) 4 mg IVP ONCE PRN PRN Reason: Nausea/Vomiting Oxycodone/Acetaminophen (Percocet 10/325 Mg Tab) 1 tab PO Q6H PRN PRN Reason: Pain, moderate (4-7) Last Admin: 06/09/17 17:56 Dose: 1 tab Quetiapine Fumarate (Seroquel) 300 mg PO HS [facility]ENN PRN Reason: Protocol Sitagliptin Phosphate (Januvia) 100 mg PO DAILY [facility] Last Admin: 06/09/17 11:34 Dose: 100 mg
[2017-06-10] MEDS: HYDROmorphone 2 mg/ml ISec IVP PRN ×6 (00:25→20:13)
[2017-06-10] MEDS: Vancomycin 1gm in NS 250ml 1 GM/250 ML BAG IVPB SCH ×2 (04:22→16:09)
[2017-06-10 07:38] VITALS: RESP 20
[2017-06-10] MEDS: Insulin Reg-LOW-Coverage SC SCH ×4 (07:58→22:16)
--- NOTE | 2017-06-10 09:40 | CP.PCM.PN ---
<Lila Martin - Last Filed: 06/10/17 09:34> Subjective - Date & Time of Evaluation Date of Evaluation: 06/10/17 Time of Evaluation: 09:35 - Subjective Subjective: 47 year old male was seen resting comfortably at bedside with attending, Dr. Bullard 1 day s/p left hallux amputation. Dressing is clean, dry, intact. Patient states that he does have pain. He denies any n/v/f/c/sob/cp. Objective - Vital Signs/Intake and Output Vital Signs (last 24 hours): Temp Pulse Resp BP Pulse Ox 98.6 F 102 H 20 114/73 97 06/10/17 07:37 06/10/17 07:37 06/10/17 07:37 06/10/17 07:37 06/10/17 07:37 Intake and Output: 06/10/17 06/10/17 06:59 18:59 Intake Total 780 Balance 780 - Medications Medications: Current Medications Alprazolam (Xanax) 2 mg PO QID PRN; Protocol PRN Reason: Anxiety Hydromorphone HCl (Dilaudid) 2 mg IVP Q4H PRN PRN Reason: Pain, severe (8-10) Last Admin: 06/10/17 08:11 Dose: 2 mg Vancomycin HCl (Vancomycin 1gm) 1 gm in 250 mls @ 167 mls/hr IVPB Q12H [facility] PRN Reason: Protocol Last Admin: 06/10/17 04:22 Dose: 167 mls/hr Insulin Human Regular (Humulin R Low) 0 units SC ACHS [facility]ENN PRN Reason: Protocol Last Admin: 06/10/17 07:58 Dose: Not Given Losartan Potassium (Cozaar) 50 mg PO DAILY [facility] Last Admin: 06/09/17 11:33 Dose: 50 mg Metformin HCl (Glucophage) 1,000 mg PO DAILY [facility] Last Admin: 06/09/17 11:35 Dose: 1,000 mg Ondansetron HCl (Zofran Inj) 4 mg IVP ONCE PRN PRN Reason: Nausea/Vomiting Oxycodone/Acetaminophen (Percocet 10/325 Mg Tab) 1 tab PO Q6H PRN PRN Reason: Pain, moderate (4-7) Last Admin: 06/09/17 17:56 Dose: 1 tab Quetiapine Fumarate (Seroquel) 300 mg PO HS [facility] PRN Reason: Protocol Sitagliptin Phosphate (Januvia) 100 mg PO DAILY [facility] Last Admin: 06/09/17 11:34 Dose: 100 mg - Constitutional Appears: Non-toxic, No Acute Distress - Extremities Exam Additional comments: Left lower extremity focused exam: Derm: Surgical site noted to the left 1st digit, suture are intact, no signs of dehiscence noted, small wound noted to lateral aspect of incision, no malodor, no purulence noted Vasc: DP and PT pulses faintly palpable, Skin temperature warm to warm from proximal to distal Neuro:Gross sensation diminished to left foot Ortho:Mild pain on palpation to left 1st digit - Neurological Exam Neurological Exam: Alert, Awake, Oriented x3 - Psychiatric Exam Psychiatric exam: Normal Affect, Normal Mood Assessment and Plan - Assessment and Plan (Free Text) Assessment: 47 year old male 1 day s/p left hallux amputation Plan: patient examined and evaluated with attending, Dr. Bullard chart, labs, vitials reviewed wound culture pending left 1st digit dressed with vaseline gauze, 4x4, kerlix pt to ampuation PWB to heel in forefoot offloading shoes cont IV abx per ID podiatry will continue to follow patient while in house <Elisabeth Bullard - Last Filed: 06/13/17 17:29> Objective - Vital Signs/Intake and Output Vital Signs (last 24 hours): Temp Pulse Resp BP Pulse Ox 97.9 F 85 20 115/65 96 06/12/17 07:42 06/12/17 09:03 06/12/17 07:42 06/12/17 09:03 06/12/17 07:42 - Labs Labs: 06/10/17 10:23 06/11/17 06:45 Attending/Attestation - Attestation I have personally seen and examined this patient.: Yes I have fully participated in the care of the patient.: Yes I have reviewed all pertinent clinical information, including history, physical exam and plan: Yes
[2017-06-10 10:39] LABS: BLOOD UREA NITROGEN 21 mg/dL (7-21); CALCIUM 8.8 mg/dL (8.4-10.5); GFR AFRICAN-AMERICAN > 60; GFR NON-AFRICAN AMERICAN > 60
[2017-06-10 10:41] LABS: HEMOGLOBIN 10.6 gm/dL (14.0-18.0); MEAN CELL VOLUME 83.1 fL (80.0-105.0); MEAN CORPUSCULAR HEMOGLOBIN 27.5 pg (25.0-35.0); MEAN CORPUSCULAR HGB CONC 33.1 g/dl (31.0-37.0); RBC 3.85 10^6/uL (3.5-6.1); RED CELL DISTRIBUTION WIDTH 13.5 % (11.5-14.5); WHITE BLOOD COUNT 6.3 10^3/ul (4.5-11.0)
--- NOTE | 2017-06-10 12:23 | CP.PCM.PN ---
Subjective - Date & Time of Evaluation Date of Evaluation: 06/10/17 Time of Evaluation: 09:30 - Subjective Subjective: nad, no c/o pain L foot Objective - Vital Signs/Intake and Output Vital Signs (last 24 hours): Temp Pulse Resp BP Pulse Ox 98.6 F 102 H 20 114/73 97 06/10/17 07:37 06/10/17 07:37 06/10/17 07:37 06/10/17 07:37 06/10/17 07:37 Intake and Output: 06/10/17 06/10/17 06:59 18:59 Intake Total 780 Balance 780 - Medications Medications: Current Medications Alprazolam (Xanax) 2 mg PO QID PRN; Protocol PRN Reason: Anxiety Hydromorphone HCl (Dilaudid) 2 mg IVP Q4H PRN PRN Reason: Pain, severe (8-10) Last Admin: 06/10/17 12:04 Dose: 2 mg Vancomycin HCl (Vancomycin 1gm) 1 gm in 250 mls @ 167 mls/hr IVPB Q12H [facility] PRN Reason: Protocol Last Admin: 06/10/17 04:22 Dose: 167 mls/hr Insulin Human Regular (Humulin R Low) 0 units SC ACHS [facility] PRN Reason: Protocol Last Admin: 06/10/17 12:04 Dose: 2 units Losartan Potassium (Cozaar) 50 mg PO DAILY [facility] Last Admin: 06/10/17 10:14 Dose: 50 mg Metformin HCl (Glucophage) 1,000 mg PO DAILY [facility] Last Admin: 06/10/17 10:14 Dose: 1,000 mg Ondansetron HCl (Zofran Inj) 4 mg IVP ONCE PRN PRN Reason: Nausea/Vomiting Oxycodone/Acetaminophen (Percocet 10/325 Mg Tab) 1 tab PO Q6H PRN PRN Reason: Pain, moderate (4-7) Last Admin: 06/09/17 17:56 Dose: 1 tab Quetiapine Fumarate (Seroquel) 300 mg PO HS [facility] PRN Reason: Protocol Sitagliptin Phosphate (Januvia) 100 mg PO DAILY [facility] Last Admin: 06/10/17 10:14 Dose: 100 mg - Labs Labs: 06/10/17 10:23 06/10/17 10:23 - Respiratory Exam Respiratory Exam: Clear to Ausculation Bilateral, NORMAL BREATHING PATTERN - Cardiovascular Exam Cardiovascular Exam: REGULAR RHYTHM - GI/Abdominal Exam GI & Abdominal Exam: Soft, Normal Bowel Sounds - Extremities Exam Additional comments: dressing L foot clean/intact - Skin Skin Exam: Normal Color, Warm Assessment and Plan (1) Osteomyelitis of foot Status: Acute (2) Type II diabetes mellitus Status: Acute - Assessment and Plan (Free Text) Plan: continue IV Abx, wound care, SW for d/c planning
[2017-06-11] MEDS: HYDROmorphone 2 mg/ml ISec IVP PRN ×3 (00:11→08:15)
[2017-06-11] MEDS: Vancomycin 1gm in NS 250ml 1 GM/250 ML BAG IVPB SCH ×2 (04:24→17:01)
[2017-06-11] MEDS: Insulin Reg-LOW-Coverage SC SCH ×4 (08:21→22:30)
--- NOTE | 2017-06-11 09:08 | PN ---
DATE: 06/10/2017 SUBJECTIVE: Patient seen earlier today in room 564, bed 2. No fevers, no chills. He appears to be comfortable. PHYSICAL EXAMINATION VITAL SIGNS: Temperature is 98, blood pressure is 114/70, respiratory rate of 20. HEENT: Unremarkable. NECK: Supple. HEART: Normal S1, S2. LUNGS: Decreased breath sounds. ABDOMEN: Soft, nontender. LABORATORY DATA: Reveals a white count of 6.3, hemoglobin of 10, platelets of 196. BUN of 21, creatinine of 1.0. Microbiology reveals a toe cultures to be pending and pathology is pending. Review of orders reveals the patient to be on vancomycin and review of orders also reveals the OR cultures to be pending and pathology appears to be pending. ASSESSMENT AND PLAN: A 47-year-old male with diabetes, hypertension, coronary artery disease, history of transient ischemic attack, history of depression and anxiety, history of intravenous drug abuse, and was admitted with left hallux osteomyelitis, status post amputation post-procedure day #1 and currently on vancomycin pending identification and sensitivity of the organisms from the OR and a pathology report from the OR. Case discussed with Dr. Bullard. We will follow closely with you. Anders Rogesr MD
--- NOTE | 2017-06-11 11:17 | CP.PCM.PN ---
Subjective - Date & Time of Evaluation Date of Evaluation: 06/11/17 Time of Evaluation: 10:15 - Subjective Subjective: Comfortable, afebrile, not in distress. Objective - Vital Signs/Intake and Output Vital Signs (last 24 hours): Temp Pulse Resp BP Pulse Ox 98.2 F 85 20 102/67 95 06/11/17 07:30 06/11/17 07:30 06/11/17 07:30 06/11/17 07:30 06/11/17 07:30 Intake and Output: 06/11/17 06/11/17 06:59 18:59 Intake Total 1200 Balance 1200 - Medications Medications: Current Medications Alprazolam (Xanax) 2 mg PO QID PRN; Protocol PRN Reason: Anxiety Hydromorphone HCl (Dilaudid) 2 mg IVP Q4H PRN PRN Reason: Pain, severe (8-10) Last Admin: 06/11/17 08:15 Dose: 2 mg Vancomycin HCl (Vancomycin 1gm) 1 gm in 250 mls @ 167 mls/hr IVPB Q12H [facility] PRN Reason: Protocol Last Admin: 06/11/17 04:24 Dose: 167 mls/hr Insulin Human Regular (Humulin R Low) 0 units SC ACHS [facility] PRN Reason: Protocol Last Admin: 06/11/17 08:21 Dose: 1 units Losartan Potassium (Cozaar) 50 mg PO DAILY [facility] Last Admin: 06/10/17 10:14 Dose: 50 mg Metformin HCl (Glucophage) 1,000 mg PO DAILY [facility] Last Admin: 06/10/17 10:14 Dose: 1,000 mg Ondansetron HCl (Zofran Inj) 4 mg IVP ONCE PRN PRN Reason: Nausea/Vomiting Oxycodone/Acetaminophen (Percocet 10/325 Mg Tab) 1 tab PO Q6H PRN PRN Reason: Pain, moderate (4-7) Last Admin: 06/09/17 17:56 Dose: 1 tab Quetiapine Fumarate (Seroquel) 300 mg PO HS [facility] PRN Reason: Protocol Last Admin: 06/10/17 22:18 Dose: 300 mg Sitagliptin Phosphate (Januvia) 100 mg PO DAILY [facility] Last Admin: 06/10/17 10:14 Dose: 100 mg - Labs Labs: 06/10/17 10:23 06/11/17 06:45 - Constitutional Appears: Non-toxic, No Acute Distress - Head Exam Head Exam: NORMAL INSPECTION - ENT Exam ENT Exam: Mucous Membranes Moist - Neck Exam Neck Exam: absent: Meningismus - Respiratory Exam Respiratory Exam: Decreased Breath Sounds - Cardiovascular Exam Cardiovascular Exam: +S1, +S2 - GI/Abdominal Exam GI & Abdominal Exam: Soft. absent: Tenderness - Extremities Exam Additional comments: left foot with dressings in place Assessment and Plan - Assessment and Plan (Free Text) Plan: Assessment Left hallux osteomyelitis S/P amputation POD #2 DM HTN CAD history of TIA history of depression and anxiety history of IV drug use Plan continue Vancomycin pending bone cx and pathology; preliminary results showed gram positive cocci in clusters from the wound will continue to monitor clinically
--- NOTE | 2017-06-11 11:31 | CP.PCM.PN ---
<Lila Martin - Last Filed: 06/11/17 11:27> Subjective - Date & Time of Evaluation Date of Evaluation: 06/11/17 Time of Evaluation: 11:28 - Subjective Subjective: 47 year old male was seen resting comfortably at bedside with attending, Dr. Bullard and Dr. Sears 2 day s/p left hallux amputation. Dressing is clean, dry , intact. Patient states that he does have pain and would like more pain medication. He states that he is willing to go to TCU for further PT and IV abx. He denies any n/v/f/c/sob/cp. Objective - Vital Signs/Intake and Output Vital Signs (last 24 hours): Temp Pulse Resp BP Pulse Ox 98.2 F 92 H 20 115/71 95 06/11/17 07:30 06/11/17 10:31 06/11/17 07:30 06/11/17 10:31 06/11/17 07:30 Intake and Output: 06/11/17 06/11/17 06:59 18:59 Intake Total 1200 Balance 1200 - Medications Medications: Current Medications Alprazolam (Xanax) 2 mg PO QID PRN; Protocol PRN Reason: Anxiety Hydromorphone HCl (Dilaudid) 3 mg IVP Q4H PRN PRN Reason: Pain, severe (8-10) Vancomycin HCl (Vancomycin 1gm) 1 gm in 250 mls @ 167 mls/hr IVPB Q12H JENN PRN Reason: Protocol Last Admin: 06/11/17 04:24 Dose: 167 mls/hr Insulin Human Regular (Humulin R Low) 0 units SC ACHS JENN PRN Reason: Protocol Last Admin: 06/11/17 08:21 Dose: 1 units Losartan Potassium (Cozaar) 50 mg PO DAILY JENN Last Admin: 06/11/17 10:31 Dose: 50 mg Metformin HCl (Glucophage) 1,000 mg PO DAILY JENN Last Admin: 06/11/17 10:33 Dose: 1,000 mg Ondansetron HCl (Zofran Inj) 4 mg IVP ONCE PRN PRN Reason: Nausea/Vomiting Quetiapine Fumarate (Seroquel) 300 mg PO HS JENN PRN Reason: Protocol Last Admin: 06/10/17 22:18 Dose: 300 mg Sitagliptin Phosphate (Januvia) 100 mg PO DAILY JENN Last Admin: 06/11/17 10:33 Dose: 100 mg - Labs Labs: 06/10/17 10:23 06/11/17 06:45 - Constitutional Appears: Well, Non-toxic, No Acute Distress - Extremities Exam Additional comments: dressing to left foot clean, dry, intact - Neurological Exam Neurological Exam: Alert, Awake, Oriented x3 - Psychiatric Exam Psychiatric exam: Normal Affect, Normal Mood Assessment and Plan - Assessment and Plan (Free Text) Assessment: 47 year old male 2 day s/p left hallux amputation Plan: patient examined and evaluated with attending, Dr. Bullard chart, labs, vitials reviewed wound culture pending left foot dressing kept C/D/I pain medication adjusted to 3 mg dilaudid Q4h prn pt to ampuation PWB to heel in forefoot offloading shoes pt to begin PT cont IV abx per ID podiatry will continue to follow patient while in house <Elisabeth Bullard - Last Filed: 06/13/17 18:33> Objective - Vital Signs/Intake and Output Vital Signs (last 24 hours): Temp Pulse Resp BP Pulse Ox 97.9 F 85 20 115/65 96 06/12/17 07:42 06/12/17 09:03 06/12/17 07:42 06/12/17 09:03 06/12/17 07:42 - Labs Labs: 06/10/17 10:23 06/11/17 06:45 Attending/Attestation - Attestation I have personally seen and examined this patient.: Yes I have fully participated in the care of the patient.: Yes I have reviewed all pertinent clinical information, including history, physical exam and plan: Yes
[2017-06-12] MEDS: Vancomycin 1gm in NS 250ml 1 GM/250 ML BAG IVPB SCH (04:04)
[2017-06-12] MEDS: Insulin Reg-LOW-Coverage SC SCH (08:57)
[2017-06-12] MEDS ORDERED: HYDROmorphone 1 mg/ml ISec IVP PRN (11:28)
[2017-06-12] MEDS ORDERED: HYDROmorphone 2 mg/ml ISec IVP PRN (11:31)
[2017-06-12 11:54] VITALS: BP 115/65; PULSE 85; TEMP 97.9; O2SAT 96
--- NOTE | 2017-06-12 12:32 | CP.PCM.PN ---
Subjective - Date & Time of Evaluation Date of Evaluation: 06/12/17 Time of Evaluation: 10:55 - Subjective Subjective: For discharge today, no pain in the left foot. No fevers overnight. Objective - Vital Signs/Intake and Output Vital Signs (last 24 hours): Temp Pulse Resp BP Pulse Ox 97.9 F 85 20 115/65 96 06/12/17 07:42 06/12/17 09:03 06/12/17 07:42 06/12/17 09:03 06/12/17 07:42 Intake and Output: 06/12/17 06/12/17 06:59 18:59 Intake Total 1510 Balance 1510 - Labs Labs: 06/10/17 10:23 06/11/17 06:45 - Constitutional Appears: Non-toxic, No Acute Distress - Head Exam Head Exam: NORMAL INSPECTION - Respiratory Exam Respiratory Exam: Decreased Breath Sounds - Cardiovascular Exam Cardiovascular Exam: +S1, +S2 - GI/Abdominal Exam GI & Abdominal Exam: Soft. absent: Tenderness - Extremities Exam Additional comments: left foot with dressings in place Assessment and Plan - Assessment and Plan (Free Text) Plan: Assessment Left hallux osteomyelitis S/P amputation POD #4 DM HTN CAD history of TIA history of depression and anxiety history of IV drug use Plan on Vancomycin pending bone cx and pathology; preliminary results showed gram positive cocci in clusters from the wound - as discussed with Dr. Bullard, patient can be switched to PO Bactrim and Levaquin with follow up at wound center (to follow up the Pathology)
--- NOTE | 2017-06-12 17:32 | CP.PCM.PN ---
<Georgette Naylor - Last Filed: 06/12/17 18:44> Subjective - Date & Time of Evaluation Date of Evaluation: 06/12/17 Time of Evaluation: 11:55 - Subjective Subjective: 47 year old male was seen resting comfortably at bedside with attending, Dr. Bullard 3 days s/p left hallux amputation. Dressing is clean, dry, and intact. Patient states that he would like to leave today and plans to follow up in the wound care center on Wednesday with Dr. Bullard as advised. He denies any F/C/N /V/SOB. Objective - Vital Signs/Intake and Output Vital Signs (last 24 hours): Temp Pulse Resp BP Pulse Ox 97.9 F 85 20 115/65 96 06/12/17 07:42 06/12/17 09:03 06/12/17 07:42 06/12/17 09:03 06/12/17 07:42 Intake and Output: 06/12/17 06/12/17 06:59 18:59 Intake Total 1510 Balance 1510 - Labs Labs: 06/10/17 10:23 06/11/17 06:45 - Constitutional Appears: Well, Non-toxic, No Acute Distress - Extremities Exam Additional comments: Left lower extremity focused exam: Derm: Surgical site noted to the left 1st digit. sutures are intact with no signs of dehiscence. Small wound noted to lateral aspect of incision has decreased in size and edges are beginning to coapt. No malodor or purulence noted Vasc: DP and PT pulses faintly palpable, skin temperature warm to warm from proximal to distal Neuro:Gross sensation diminished to left foot Ortho:Mild pain on palpation to left 1st digit - Neurological Exam Neurological Exam: Alert, Awake, Oriented x3 - Psychiatric Exam Psychiatric exam: Normal Affect, Normal Mood Assessment and Plan - Assessment and Plan (Free Text) Assessment: 47 year old male 3 days s/p left hallux amputation Plan: Patient examined and evaluated with attending, Dr. Bullard Chart, labs, and vitals reviewed - afebrile, WBC 6.3 Wound culture final- coag neg Staph Applied betadine to surgical incision site and dressed L foot with DSD and JELANI bandage Pt to be PWB to heel in forefoot offloading shoes Pt states he wants to leave today Spoke with Dr. Sears and Dr. Cortes- pt will go home on PO Bactrim and Levaquin Pt to F/U in [facility] on Wednesday with Dr. Bullard Podiatry will continue to follow patient until he goes home <Elisabeth Bullard - Last Filed: 06/13/17 18:40> Objective - Vital Signs/Intake and Output Vital Signs (last 24 hours): Temp Pulse Resp BP Pulse Ox 97.9 F 85 20 115/65 96 06/12/17 07:42 06/12/17 09:03 06/12/17 07:42 06/12/17 09:03 06/12/17 07:42 - Labs Labs: 06/10/17 10:23 06/11/17 06:45 Attending/Attestation - Attestation I have personally seen and examined this patient.: Yes I have fully participated in the care of the patient.: Yes I have reviewed all pertinent clinical information, including history, physical exam and plan: Yes
== END 2017-06-12 12:23 | disposition home or self-care (01) | DRG 617 ==
LOC: SDS 06:28 → 5RNO 10:53 → OBSVTOIN 06-10 13:00
PROVIDERS: ADMIT Internal Medicine; ATTEND Internal Medicine
PROC: 0Y6Q0Z1 Detachment at Left 1st Toe, High, Open Approach (ICD-10-PCS; principal; 2017-06-09 07:30)
DX: E11.69 Type 2 diabetes mellitus with other specified complication (principal); M86.8X7 Other osteomyelitis, ankle and foot; I10 Essential (primary) hypertension; I25.10 Atherosclerotic heart disease of native coronary artery without angina pectoris; F32.9 Major depressive disorder, single episode, unspecified; F41.9 Anxiety disorder, unspecified; Z87.891 Personal history of nicotine dependence; Z86.73 Personal history of transient ischemic attack (TIA), and cerebral infarction without residual deficits; Z79.84 Long term (current) use of oral hypoglycemic drugs

== ENCOUNTER 2017-07-02 15:12 | Observation (INO) | payer BC ==
--- NOTE | 2017-07-02 15:36 | ED PDOC ---
Arrival/HPI - General Chief Complaint: Weakness/Neurological Deficit Time Seen by Provider: 07/02/17 15:23 Historian: Patient, Spouse - History of Present Illness Time/Duration: Other (Approximately 16 hours prior to arrival) Symptom Onset: Sudden Symptom Course: Improving Severity Level: Mild Activities at Onset: Rest Associated Symptoms (Text): 07/02/17 15:34 Patient was in bed last evening watching television approximately 11:30 or 12: 00 when the reports he had trouble speaking with slurred speech and difficulty walking and generalized body shaking. He still had the symptoms this morning and she decided to bring him to the emergency department this afternoon. Patient is not a TPA candidate as symptoms are too long and too mild. He was discharged from the hospital approximately 2 weeks ago after admission for a right big toe amputation at the IP joint. No chest pain palpitations or dyspnea. No abdominal pain nausea or vomiting. No numbness tingling or paresthesias. reports that he injured the toe amputation during the shaking. He is no longer having any trouble speaking. Well-known to the emergency Department staff. Past Medical History - Infectious Disease Hx of Infectious Diseases: None - Tetanus Immunization Tetanus Immunization: Unknown - Past Medical History Past Medical History: No Previous - Cardiac Hx Cardiac Disorders: Yes Hx Hypertension: Yes - Pulmonary Hx Respiratory Disorders: Yes Hx Asthma: Yes Hx Chronic Obstructive Pulmonary Disease (COPD): Yes - Neurological Hx Neurological Disorder: Yes HX Cerebrovascular Accident: Yes Hx Transient Ischemic Attacks (TIA): Yes - HEENT Hx HEENT Disorder: No - Renal Hx Renal Disorder: No - Endocrine/Metabolic Hx Endocrine Disorders: Yes Hx Diabetes Mellitus Type 2: Yes - Hematological/Oncological Hx Blood Disorders: No - Integumentary Hx Dermatological Disorder: Yes Hx Eczema: Yes - Musculoskeletal/Rheumatological Hx Musculoskeletal Disorders: Yes (Hx of lumbar sx. Left hip sx and rt knee sx.) Hx Falls: Yes Hx Unsteady Gait: Yes - Gastrointestinal Hx Gastrointestinal Disorders: No - Genitourinary/Gynecological Hx Genitourinary Disorders: No - Psychiatric Hx Psychophysiologic Disorder: No Hx Emotional Abuse: No Hx Physical Abuse: No Hx Substance Use: No (denies) - Past Surgical History Past Surgical History: No Previous - Surgical History Hx Amputation: Yes - Anesthesia Hx Anesthesia Reactions: No Hx Malignant Hyperthermia: No - Suicidal Assessment Feels Threatened In Home Enviroment: No Family/Social History - Physician Review Nursing Documentation Reviewed: Yes Family/Social History: Unknown Family HX Smoking Status: Heavy Smoker > 10 Cigarettes Daily Hx Alcohol Use: No (denies) Hx Substance Use: No (denies) Substance used: recovering cocaine and heroin Hx Substance Use Treatment: No Allergies/Home Meds Allergies/Adverse Reactions: Allergies No Known Allergies Allergy (Verified 07/02/17 15:23) Home Medications: Home Meds Medication Instructions Recorded Confirmed Quetiapine Fumarate [Seroquel] 300 mg PO HS PRN 07/29/16 07/02/17 MetFORMIN [glucoPHAGE] 1,000 mg PO BID 08/16/16 07/02/17 Losartan [Cozaar] 50 mg PO DAILY 06/03/17 07/02/17 Oxycodone HCl [Roxicodone] 30 mg PO Q6H PRN 06/03/17 07/02/17 SITagliptin [Januvia] 100 mg PO DAILY 06/03/17 07/02/17 Review of Systems - Physician Review All systems were reviewed & negative as marked: Yes - Review of Systems Constitutional: absent: Fatigue, Fevers Respiratory: Normal Cardiovascular: Normal Gastrointestinal: Normal Genitourinary Male: Normal Neurological: Gait Changes, Speech Changes, Seizure. absent: Headache, Dizziness, Focal Weakness, Facial Droop, Disequilibrium Physical Exam Vital Signs Temp Pulse Resp BP Pulse Ox 07/02/17 15:27 99.1 F 93 H 15 144/71 96 Temperature: Afebrile Blood Pressure: Normal Pulse: Regular Respiratory Rate: Normal Appearance: Positive for: Well-Appearing, Non-Toxic, Comfortable Pain Distress: None Mental Status: Positive for: Alert and Oriented X 3 - Systems Exam Head: Present: Atraumatic, Normocephalic Pupils: Present: PERRL Extroacular Muscles: Present: EOMI Conjunctiva: Present: Normal Mouth: Present: Moist Mucous Membranes Pharnyx: No: ERYTHEMA, EXUDATE, TONSILS ENLARGED Neck: Present: Normal Range of Motion. No: MIDLINE TENDERNESS, Paraspinal Tenderness, Lymphadenopathy Respiratory/Chest: Present: Clear to Auscultation, Good Air Exchange, Decreased Breath Sounds. No: Respiratory Distress, Accessory Muscle Use Cardiovascular: Present: Regular Rate and Rhythm, Normal S1, S2. No: Murmurs Abdomen: Present: Normal Bowel Sounds. No: Tenderness, Distention, Peritoneal Signs, Rebound, Guarding Upper Extremity: Present: Normal Inspection. No: Cyanosis, Edema Lower Extremity: Present: Other (Right big toe amputation with sutures intact and clean and dry with distal necrosis) Neurological: Present: GCS=15, CN II-XII Intact, Speech Normal, Motor Func Grossly Intact, Normal Sensory Function, Normal Cerebellar Funct Skin: Present: Warm, Dry, Normal Color. No: Rashes Psychiatric: Present: Alert, Oriented x 3, Normal Insight, Normal Concentration Medical Decision Making ED Course and Treatment: 07/02/17 16:03 EKG shows normal sinus rhythm rate approximately [address] or T-wave changes 07/02/17 16:50 X-ray chest 1 view shows no infiltrate effusion or cardiomegaly 07/02/17 17:[address] Sears. Telemetry observation for TIA. - Lab Interpretations Lab Results: 07/02/17 15:50 07/02/17 15:50 Lab Results 07/02/17 15:50: Sodium 139, Potassium 4.4, Chloride 98, Carbon Dioxide 29, Anion Gap 16, BUN 27 H, Creatinine 1.6 H, Est GFR ( Amer) 56, Est GFR ( Non-Af Amer) 46, Random Glucose 141 H, Calcium 8.6, Total Bilirubin 0.6, AST 28 , ALT 25, Alkaline Phosphatase 63, Troponin I < 0.01, Total Protein 7.5, Albumin 4.2, Globulin 3.3, Albumin/Globulin Ratio 1.3, Triglycerides 141, Cholesterol 135, LDL Cholesterol Direct 74, HDL Cholesterol 39 07/02/17 15:50: PT 11.7, INR 1.08, APTT 26.1 07/02/17 15:50: WBC 8.2 D, RBC 3.59, Hgb 10.0 L, Hct 29.7 L, MCV 82.7, MCH 27.9 , MCHC 33.7, RDW 13.0, Plt Count 259, MPV 9.3, Gran % 69.0 H, Lymph % (Auto) 21.3 L, [place] % (Auto) 6.9 H, Eos % (Auto) 2.3, Baso % (Auto) 0.5, Gran # 5.68, Lymph # 1.8, [place] # 0.6, Eos # 0.2, Baso # 0.04 - RAD Interpretation Radiology Orders: 07/02/17 15:32 CHEST PORTABLE [RAD] Stat 07/02/17 15:33 HEAD W/O CONTRAST [CT] Stat CT scan of the head as read by the radiologist shows no acute findings. Cloth Mercerizer Back Tender: Radiologist NIHSS Scale ([place]) Time Performed: 15:55 - How Severe is the Stoke Baseline Level of Consciousness: 0=Alert LOC to Questions: 0=Both comments correct LOC to commands: 0=Obeys both correctly Best Gaze: 0=Normal Visual: 0=No visual loss Facial: 0=Normal Motor Arm - Left: 0=No drift Motor Arm - Right: 0=No drift Motor Leg - Left: 0=No drift Motor Leg - Right: 0=No drift Limb Ataxia: 0=Absent Sensory: 0=Normal Best Language: 0=No aphasia Dysarthia: 0=Normal articulation Extinction & Inattention (Neglect): 0=Normal, no object Score: 0 Risk Level: No Stroke Risk Disposition/Present on Arrival - Present on Arrival Any Indicators Present on Arrival: No History of DVT/PE: No History of Uncontrolled Diabetes: No Urinary Catheter: No History of Decub. Ulcer: No History Surgical Site Infection Following: None - Disposition Have Diagnosis and Disposition been Completed?: Yes Diagnosis: Transient ischemic attack Disposition: HOSPITALIZED Disposition Time: 17:06 Patient Plan: Observation, Telemetry Condition: GOOD Referrals: Nicholas Sears JD, MD [Primary Care Provider] - Follow up with primary Forms: [employer] (Inspect Manager) (Malagasy)
[2017-07-02 16:15] LABS: BASO # 0.04 K/mm3 (0.0-2.0); BASO % 0.5 % (0.0-3.0); EOS # 0.2 (0.0-0.7); EOS % 2.3 % (1.5-5.0); GRAN # 5.68 (1.4-6.5); LYMPH # 1.8 (1.2-3.4); LYMPH % 21.3 % (22.0-35.0); MEAN CELL VOLUME 82.7 fL (80.0-105.0); MEAN CORPUSCULAR HEMOGLOBIN 27.9 pg (25.0-35.0); MEAN CORPUSCULAR HGB CONC 33.7 g/dl (31.0-37.0); MEAN PLATELET VOLUME 9.3 fl (7.0-11.0); MONO # 0.6 (0.1-0.6); MONO % 6.9 % (1.0-6.0); PLATELET COUNT 259 10^3/uL (120.0-450.0); RBC 3.59 10^6/uL (3.5-6.1); WHITE BLOOD COUNT 8.2 10^3/ul (4.5-11.0)
[2017-07-02 16:17] LABS: ALB/GLOB RATIO 1.3 (1.1-1.8); ALBUMIN 4.2 g/dL (3.0-4.8); ALT/SGPT 25 U/L (7-56); AST/SGOT 28 U/L (15-59); BLOOD UREA NITROGEN 27 mg/dL (7-21); CALCIUM 8.6 mg/dL (8.4-10.5); GFR AFRICAN-AMERICAN 56; GFR NON-AFRICAN AMERICAN 46; HDL CHOLESTEROL 39 mg/dL (29-60)
[2017-07-02 16:27] LABS: INR 1.08 (0.93-1.08); PARTIAL THROMBOPLASTIN TIME 26.1 Seconds (23.7-30.8); PROTHROMBIN TIME 11.7 Seconds (9.9-11.8)
[2017-07-02 16:28] LABS: LDL CHOLESTEROL 74 mg/dL (0-129)
[2017-07-02 16:38] LABS: TROPONIN I < 0.01 ng/mL
--- NOTE | 2017-07-02 16:47 | RAD ---
HISTORY: ams COMPARISON: Chest x-ray performed 06/03/17 TECHNIQUE: Chest, one view. FINDINGS: LUNGS: Bilateral costophrenic angles are excluded from view. No focal consolidation. Scattered probable tiny calcified granulomas. Please note that chest x-ray has limited sensitivity for the detection of pulmonary masses. PLEURA: No significant pleural effusion identified. No definite pneumothorax . CARDIOVASCULAR: Heart size appears top normal. OSSEOUS STRUCTURES: Osseous demineralization. Degenerative changes. VISUALIZED UPPER ABDOMEN: Unremarkable. OTHER FINDINGS: Spinal stimulator noted in the lower thoracic spine. IMPRESSION: No acute findings.
--- NOTE | 2017-07-02 16:49 | CT ---
PROCEDURE: CT HEAD WITHOUT CONTRAST. HISTORY: cva COMPARISON: 08/16/2016 TECHNIQUE: Axial computed tomography images were obtained through the head/brain without intravenous contrast. Radiation dose: Total exam DLP = 774.23 mGy-cm. This CT exam was performed using one or more of the following dose reduction techniques: Automated exposure control, adjustment of the mA and/or kV according to patient size, and/or use of iterative reconstruction technique. FINDINGS: HEMORRHAGE: No intracranial hemorrhage. BRAIN: No mass effect or edema. No atrophy or chronic microvascular ischemic changes. VENTRICLES: Unremarkable. No hydrocephalus. CALVARIUM: Unremarkable. PARANASAL SINUSES: Probable mucous secretion in right maxillary antrum. Sphenoid retention cyst/polyp. MASTOID AIR CELLS: Unremarkable as visualized. No inflammatory changes. OTHER FINDINGS: None. IMPRESSION: No intracranial mass, hemorrhage or evidence of acute infarct. Sphenoid retention cyst/ polyp.
[2017-07-02] MEDS: oxyCODONE 30 mg Immediate Release Tab PO PRN (21:29)
[2017-07-02] MEDS: Sodium Chloride 0.9% 1,000 ML IV SCH (21:30)
[2017-07-02] MEDS: Insulin Reg-LOW-Coverage SC SCH (22:10)
[2017-07-02 22:32] VITALS: BMI 26.2
[2017-07-02] MEDS ORDERED: Pneumococcal 23-Valent Vaccine IM ONE (22:32)
[2017-07-03] MEDS: Sodium Chloride 0.9% 1,000 ML IV SCH (06:10)
[2017-07-03] MEDS: oxyCODONE 30 mg Immediate Release Tab PO PRN (06:22)
[2017-07-03 08:41] VITALS: BP 148/87; PULSE 87; RESP 20; TEMP 98.8; O2SAT 96
[2017-07-03] MEDS: Insulin Reg-LOW-Coverage SC SCH (09:33)
[2017-07-03] MEDS ORDERED: levoFLOXacin 750 MG TAB PO SCH (10:00)
--- NOTE | 2017-07-03 10:42 | CP.PCM.HP ---
History of Present Illness - History of Present Illness History of Present Illness: 47 yo male h/o Type II DM, ?? h/o TIA in past present with episode of shaking and slurred speech lasting few mins. Denies cp, no sob no weakness of arm or leg, no fever/chills, no n/v, no dirrrhea Present on Admission - Present on Admission Any Indicators Present on Admission: No Past Patient History - Infectious Disease Hx of Infectious Diseases: None - Tetanus Immunizations Tetanus Immunization: Unknown - Past Medical History & Family History Past Medical History?: Yes - Past Social History Smoking Status: Current Some Days Smoker - CARDIAC Hx Cardiac Disorders: Yes Hx Hypertension: Yes - PULMONARY Hx Respiratory Disorders: Yes Hx Asthma: Yes Hx Chronic Obstructive Pulmonary Disease (COPD): Yes - NEUROLOGICAL Hx Neurological Disorder: Yes HX Cerebrovascular Accident: Yes Hx Transient Ischemic Attacks (TIA): Yes - HEENT Hx HEENT Problems: No - RENAL Hx Chronic Kidney Disease: No - ENDOCRINE/METABOLIC Hx Endocrine Disorders: Yes Hx Diabetes Mellitus Type 2: Yes - HEMATOLOGICAL/ONCOLOGICAL Hx Blood Disorders: No - INTEGUMENTARY Hx Dermatological Problems: Yes Hx Eczema: Yes Other/Comment: 07-02-17 LEFT BIG TOE PARITALLY AMPUTATED WITH STITCHES STILL INTACT. RIGHT KNEE SKIN ABRASION FROM FALL. - MUSCULOSKELETAL/RHEUMATOLOGICAL Hx Musculoskeletal Disorders: Yes (Hx of lumbar sx. Left hip sx and rt knee sx.) Hx Falls: Yes Hx Unsteady Gait: Yes - GASTROINTESTINAL Hx Gastrointestinal Disorders: No - GENITOURINARY/GYNECOLOGICAL Hx Genitourinary Disorders: No - PSYCHIATRIC Hx Psychophysiologic Disorder: Yes (H/O SUICIDE) Hx Emotional Abuse: No Hx Physical Abuse: No Hx Substance Use: Yes (H/O OF SUBSTANCE ABUSE,MULTIPLE DRUG OD,BENZO) - SURGICAL HISTORY Hx Surgeries: Yes Hx Amputation: Yes Other/Comment: LUMBAR SX,L HIP SX,RIGHT KNEE SX, - ANESTHESIA Hx Anesthesia Reactions: No Hx Malignant Hyperthermia: No Meds Allergies/Adverse Reactions: Allergies Allergy/AdvReac Type Severity Reaction Status Date / Time No Known Allergies Allergy Verified 07/02/17 18:56 Physical Exam - Constitutional Appears: No Acute Distress - Head Exam Head Exam: ATRAUMATIC, NORMOCEPHALIC - Neck Exam Neck exam: Positive for: Normal Inspection - Respiratory Exam Respiratory Exam: Clear to Auscultation Bilateral, NORMAL BREATHING PATTERN - Cardiovascular Exam Cardiovascular Exam: REGULAR RHYTHM - GI/Abdominal Exam GI & Abdominal Exam: Normal Bowel Sounds, Soft - Extremities Exam Extremities exam: Positive for: normal inspection - Expanded Lower Extremities Exam Left Foot/Toe exam: amputation - Neurological Exam Neurological exam: Alert, Oriented x3 Results - Vital Signs Recent Vital Signs: Last Vital Signs Temp 98.8 F 07/03/17 06:00 Pulse 87 07/03/17 06:00 Resp 20 07/03/17 06:00 BP 148/87 07/03/17 10:33 Pulse Ox 96 07/03/17 06:00 - Labs Result Diagrams: 07/02/17 15:50 07/02/17 15:50 Labs: Laboratory Results - last 24 hr 07/02/17 07/02/17 18:20 18:40 Blood Type A POSITIVE Blood Type Confirm A POSITIVE Antibody Screen Negative BBK History Checked No verified bt Assessment & Plan (1) Altered awareness, transient Status: Resolved (2) Azotemia Status: Acute - Assessment and Plan (Free Text) Plan: neuro eval - Date & Time Date: 07/03/17 Time: 15:00
--- NOTE | 2017-07-03 10:43 | CARD ---
APPROVED REPORT EKG Measurement Heart [id number] <Conclusion> Normal sinus rhythm Normal ECG No change
[2017-07-03] MEDS ORDERED: Enoxaparin 30 mg Syringe SC SCH (10:45)
--- NOTE | 2017-07-03 14:12 | CON ---
DATE: 07/03/2017 CHIEF COMPLAINT: Transient slurred speech. HISTORY OF PRESENT ILLNESS: A 47-year-old man, history of type 2 diabetes, history of chronic lumbar pain, history of COPD, asthma, who came to the hospital because he was watching television, he has had trouble with speaking and difficulty walking, generalized body shaking. Apparently, he was taking benzos and opiates at the same time. Currently, his CT had showed no acute intracranial abnormality. Currently, he denies any paresthesias or focal weakness of the extremities at this time. He has left toe amputation. No acute events overnight. He is neurologically stable at this standpoint. A1c is 7.8, making him poorly controlled diabetes, but his labs are stable. He is mildly dehydrated which has been hydrated. His blood pressures are stable. PAST MEDICAL HISTORY: Type 2 diabetes mellitus, COPD, asthma, history of left toe amputation. ALLERGIES: NO KNOWN DRUG ALLERGIES. SOCIAL HISTORY: History of recovering cocaine and heroin abuse, heavy smoker, more than 10 cigarettes per day. Otherwise, occasional alcohol use. MEDICATIONS: Reviewed by the nurse per reconciliation sheet. REVIEW OF SYSTEMS: A 14-point review of system is negative except as in the HPI. FAMILY HISTORY: Noncontributory. PHYSICAL EXAMINATION VITAL SIGNS: Temperature 98.8, pulse 87, blood pressure 140/87, respiratory rate 20, oxygen saturation 96% on room air. GENERAL: The patient is staying up in bed in no acute distress. HEENT: Atraumatic and normocephalic. PERRLA. Extraocular muscles intact. NECK: Supple. No JVD. No adenopathy noted. LUNGS: Clear to auscultation. No adventitious sounds. HEART: S1 and S2. Normal rate and rhythm. No murmurs, rubs, or gallops. ABDOMEN: Soft, nontender, nondistended. Bowel sounds are present. EXTREMITIES: No clubbing. No cyanosis. Peripheral pulses 2+ felt bilaterally. NEUROLOGIC: The patient is alert and oriented to person, place, month and year. Speech is fluent without any errors. Cranial nerves II through XII intact. Motor exam: Moves all extremities equally. Toes are downgoing bilaterally. Sensory exam: Light touch and pinprick is slightly decreased at the calves bilaterally, decreased vibration at the toes. DTRs are 2+ throughout and 1 at the ankles. Coordination, [id number] intact. Gait is deferred for now. LABORATORY DATA: Sodium 139, potassium 4.4, chloride 98, carbon dioxide 29, BUN of 27, creatinine 1.6, random glucose 141, A1c is 7.8. ASSESSMENT AND PLAN: This 47-year-old man with past medical history of type 2 diabetes mellitus with A1c of 7.8; issue of chronic back pain, on opiates and takes benzodiazepines; is a smoker; came in with transient slurred speech. His transient slurred speech is likely secondary to medication effect of combination of opiates and benzodiazepines. At this time, he is neurological stable. Recommend diabetic education, keep his blood sugars between 140 to 180, and take an aspirin 81 mg daily for stroke prevention. He is clinically stable from my standpoint. Thank you for this consult. Marquis Huizar MD
--- NOTE | 2017-07-03 16:32 | CON ---
HISTORY OF PRESENT ILLNESS: A 47-year-old male well known to the [facility] Wound Care Team seen at bedside for consultation, evaluation, and management of a right great toe amputation performed approximately two weeks ago. The patient was scheduled to followup with me during the week as his surgeon Dr. Bullard was away, but patient did not show up. He reported to the emergency room yesterday as his stated that he had trouble speaking with slurred speech and had difficulty walking and had overall body shaking. He presented in the same condition at the emergency room where he was admitted for observation. 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 PAST SURGICAL HISTORY: Includes recent amputation of the distal aspect of his right hallux, left hip surgery, right knee surgery, and lumbar back surgery. SOCIAL HISTORY: Patient is still a heavy smoker greater than 10 cigarettes a day. Past history of cocaine and heroin addiction. States he no longer uses illicit drugs. ALLERGIES: THE PATIENT HAS NO KNOWN DRUG ALLERGIES. FAMILY HISTORY: Unremarkable. MEDICATION: All medication are noted in MAR. OBJECTIVE: EXTREMITIES: Palpable pedal pulses noted bilaterally. The patient is unable to detect 5.07 g monofilament wire testing bilaterally, lower extremities skin presents discolored. There is noted to be a surgical site on the distal aspect of the right hallux, which had undergone distal amputation although sutures are intact, well coapted with no signs of dehiscence; however, the area is macerated. There is noted to be a superficial abrasion secondary to recent fall yesterday prior to admission on his right knee that remains primarily granula with no signs of infections. ASSESSMENT: Status post right hallux amputation times two weeks, abrasion to the right knee. PLAN: The patient is right hallux was cleansed with normal sterile saline and application of Betadine solution and dry sterile dressing was applied. Application of the Bactroban and was applied to the right knee. The patient will have dressing changed. The patient will keep his dressing on. The patient will be seen and followed daily. He is able to walk with his surgical shoe, which he presented with. The patient will be seen and followed up daily while in house. Albert Ramirez DPM [facility] # [id number]
== END 2017-07-03 13:58 | disposition home or self-care (01) ==
LOC: ED 15:12 → ERH 17:04 → 3RSO 18:53
PROVIDERS: ADMIT Internal Medicine; ATTEND Internal Medicine
DX: R47.81 Slurred speech (principal); R40.4 Transient alteration of awareness; J44.9 Chronic obstructive pulmonary disease, unspecified; R26.2 Difficulty in walking, not elsewhere classified; E11.65 Type 2 diabetes mellitus with hyperglycemia; E11.42 Type 2 diabetes mellitus with diabetic polyneuropathy; E86.0 Dehydration; I10 Essential (primary) hypertension; G89.29 Other chronic pain; M54.5 Low back pain; F17.210 Nicotine dependence, cigarettes, uncomplicated; Z86.73 Personal history of transient ischemic attack (TIA), and cerebral infarction without residual deficits; Z89.411 Acquired absence of right great toe
CPT/HCPCS: 70450; 71010; 80053; 80061; 82948; 83036; 84484; 85025; 85610; 85730; 86850; 86900; 93005; 99285; G0378; J7040

== ENCOUNTER 2017-12-09 05:22 | Emergency (ER) | payer BC ==
[2017-12-09 05:22] VITALS: BMI 26.2
--- NOTE | 2017-12-09 05:47 | ED PDOC ---
Arrival/HPI - General Time Seen by Provider: 12/09/17 05:29 Historian: Patient, Spouse - History of Present Illness Narrative History of Present Illness (Text): 12/09/17 05:44 Ron Little is a 47 year old male, whose past medical history includes diabetes, hypertension, CAD, TIA, AK, depression, and anxiety, who presents to the Emergency department status post syncopal episode. Patient states he has been unsteady while walking with associated dizziness and recurrent falls for the past few days. Patient states prior to arrival while getting ready he lost consciousness, fell to the ground, and hit the back of his head. Patient also complaining of left hip pain. Patient denies any fever, chills, chest pain, shortness of breath, nausea, vomiting, back pain, neck pain, headache, or any other complaints. Symptom Onset: Gradual Symptom Course: Unchanged Activities at Onset: Light Context: Home Past Medical History - Provider Review Nursing Documentation Reviewed: Yes - Infectious Disease Hx of Infectious Diseases: None - Tetanus Immunization Tetanus Immunization: Unknown - Past Medical History Past Medical History: No Previous - Cardiac Hx Cardiac Disorders: Yes Hx Hypertension: Yes Other/Comment: cardiac cath - Pulmonary Hx Respiratory Disorders: Yes Hx Asthma: Yes Hx Chronic Obstructive Pulmonary Disease (COPD): Yes - Neurological Hx Neurological Disorder: Yes HX Cerebrovascular Accident: Yes Hx Dizziness: Yes Hx Seizures: Yes Hx Transient Ischemic Attacks (TIA): Yes - HEENT Hx HEENT Disorder: No - Renal Hx Renal Disorder: No - Endocrine/Metabolic Hx Endocrine Disorders: Yes Hx Diabetes Mellitus Type 2: Yes - Hematological/Oncological Hx Blood Disorders: No - Integumentary Hx Dermatological Disorder: Yes Hx Eczema: Yes Other/Comment: 07-02-17 LEFT BIG TOE PARITALLY AMPUTATED WITH STITCHES STILL INTACT. RIGHT KNEE SKIN ABRASION FROM FALL. - Musculoskeletal/Rheumatological Hx Musculoskeletal Disorders: Yes (Hx of lumbar sx. Left hip sx and rt knee sx.) Hx Back Pain: Yes Hx Falls: Yes Hx Unsteady Gait: Yes - Gastrointestinal Hx Gastrointestinal Disorders: No - Genitourinary/Gynecological Hx Genitourinary Disorders: No - Psychiatric Hx Psychophysiologic Disorder: Yes (H/O SUICIDE) Hx Anxiety: Yes Hx Depression: Yes Hx Emotional Abuse: No Hx Physical Abuse: No Hx Substance Use: Yes (H/O OF SUBSTANCE ABUSE,MULTIPLE DRUG OD,BENZO) - Past Surgical History Past Surgical History: No Previous - Surgical History Hx Amputation: Yes Other/Comment: LUMBAR SX,L HIP SX,RIGHT KNEE SX, amp left great toe/natalya femur rods - Anesthesia Hx Anesthesia Reactions: No Hx Malignant Hyperthermia: No - Suicidal Assessment Feels Threatened In Home Enviroment: No Family/Social History - Physician Review Nursing Documentation Reviewed: Yes Family/Social History: Unknown Family HX Smoking Status: Light Smoker < 10 Cigarettes Daily Hx Alcohol Use: No (DENIES) Hx Substance Use: Yes (H/O OF SUBSTANCE ABUSE,MULTIPLE DRUG OD,BENZO) Substance used: recovering cocaine and heroin Hx Substance Use Treatment: No Allergies/Home Meds Allergies/Adverse Reactions: Allergies No Known Allergies Allergy (Verified 12/09/17 05:32) Home Medications: Home Meds Medication Instructions Recorded Confirmed Quetiapine Fumarate [Seroquel] 300 mg PO HS PRN 07/29/16 12/09/17 MetFORMIN [glucoPHAGE] 1 mg PO BID 08/16/16 12/09/17 Losartan [Cozaar] 60 mg PO DAILY 06/03/17 12/09/17 Oxycodone HCl [Roxicodone] 30 mg PO Q6H PRN 06/03/17 12/09/17 Furosemide [Lasix] 20 mg PO DAILY 12/09/17 12/09/17 Gabapentin [Neurontin] 600 mg PO TID 12/09/17 12/09/17 Melatonin 10 mg PO HS 12/09/17 12/09/17 Potassium Gluconate [Potassium] 20 mg PO DAILY 12/09/17 12/09/17 Prazosin HCL [Minipress] 1 mg PO HS 12/09/17 12/09/17 Review of Systems - Physician Review All systems were reviewed & negative as marked: Yes - Review of Systems Constitutional: Normal. absent: Fevers Eyes: Normal ENT: Normal Respiratory: Normal. absent: SOB, Cough Cardiovascular: Syncope. absent: Chest Pain Gastrointestinal: Normal. absent: Abdominal Pain, Diarrhea, Nausea, Vomiting Genitourinary Male: Normal. absent: Dysuria, Frequency, Hematuria, Urinary Output Changes Musculoskeletal: Arthralgias (+left hip pain) Skin: Normal. absent: Rash Neurological: Dizziness Endocrine: Normal Hemo/Lymphatic: Normal Psychiatric: Normal Physical Exam Vital Signs Reviewed: Yes Vital Signs Temp Pulse Resp BP Pulse Ox 12/09/17 05:30 97.4 F L 77 17 104/49 L 98 Temperature: Afebrile Blood Pressure: Normal Pulse: Regular Respiratory Rate: Normal Appearance: Positive for: Well-Appearing, Non-Toxic, Comfortable Pain Distress: None Mental Status: Positive for: Alert and Oriented X 3 - Systems Exam Head: Present: Normocephalic, Tenderness (Tenderness to occipital scalp area) Pupils: Present: PERRL Extroacular Muscles: Present: EOMI Conjunctiva: Present: Normal Mouth: Present: Moist Mucous Membranes Neck: Present: Normal Range of Motion Respiratory/Chest: Present: Clear to Auscultation, Good Air Exchange. No: Respiratory Distress, Accessory Muscle Use Cardiovascular: Present: Regular Rate and Rhythm, Normal S1, S2. No: Murmurs Abdomen: Present: Normal Bowel Sounds. No: Tenderness, Distention, Peritoneal Signs Back: Present: Normal Inspection Upper Extremity: Present: Normal Inspection. No: Cyanosis, Edema Lower Extremity: Present: NORMAL PULSES, Tenderness (Pain at any attempt at flexion of left hip), Neurovascularly Intact, Capillary Refill < 2 s. No: Edema , Cyanosis, Swelling, Erythema, Deformity Neurological: Present: GCS=15, CN II-XII Intact, Speech Normal Skin: Present: Warm, Dry, Normal Color. No: Rashes Psychiatric: Present: Alert, Oriented x 3, Normal Insight, Normal Concentration Medical Decision Making ED Course and Treatment: 12/09/17 05:44 Impression: 47 year old male complaining of syncope, recurrent falls, unsteady gait, and dizziness. Plan: -- CT Head w/o contrast -- EKG -- Chest X-ray -- XR Hips -- Labs, cardiac enzymes, alcohol level -- Urinalysis, urine drug screen -- Reassess and disposition Prior Visits: Notes and results from previous visits were reviewed. On 07/02/2017, pt was seen in the Emergency department for slurred speech, difficulty ambulating, and generalized body shaking. Pt was admitted to the hospital for further evaluation. Progress Notes: 12/09/17 06:32 Reviewed EKG, NSR at [address]-segment elevations or depressions, no T-wave inversions, normal intervals. 12/09/17 07:00 Case endorsed to , pending X-rays, CT Head, re-assessment, and final disposition. - Lab Interpretations Lab Results: 12/09/17 06:20 12/09/17 06:20 Lab Results 12/09/17 06:20: Alcohol, Quantitative < 10 12/09/17 06:20: WBC 7.3, RBC 3.17 L, Hgb 8.5 L, Hct 27.9 L, MCV 88.0, MCH 26.8, MCHC 30.5 L, RDW 13.3, Plt Count 299, MPV 9.8 12/09/17 06:20: Sodium Pending, Potassium Pending, Chloride Pending, Carbon Dioxide Pending, Anion Gap Pending, BUN Pending, Creatinine Pending, Est GFR ( Amer) Pending, Est GFR (Non-Af Amer) Pending, Random Glucose Pending, Calcium Pending, Total Bilirubin Pending, AST Pending, ALT Pending, Alkaline Phosphatase Pending, Lactate Dehydrogenase Pending, Total Creatine Kinase Pending, Troponin I < 0.01, Total Protein Pending, Albumin Pending, Globulin Pending, Albumin/Globulin Ratio Pending 12/09/17 06:20: PT Pending, INR Pending, APTT 30.5 12/09/17 06:01: POC Glucose (mg/dL) 117 H - RAD Interpretation Radiology Orders: 12/09/17 05:47 HEAD W/O CONTRAST [CT] Stat CHEST PORTABLE [RAD] Stat 12/09/17 05:50 Hip Bi with Pelvis Fall Protocol [HIP MIN 2V W/ PELVIS NATALYA] [RAD] Stat - EKG Interpretation Interpreted by ED Physician: Yes Type: 12 lead EKG - Scribe Statement The provider has reviewed the documentation as recorded by the Willis Montalvo Provider Scribe Attestation: All medical record entries made by the Scribhawa were at my direction and personally dictated by me. I have reviewed the chart and agree that the record accurately reflects my personal performance of the history, physical exam, medical decision making, and the department course for this patient. I have also personally directed, reviewed, and agree with the discharge instructions and disposition. Disposition/Present on Arrival - Present on Arrival Any Indicators Present on Arrival: No History of DVT/PE: No History of Uncontrolled Diabetes: No Urinary Catheter: No History of Decub. Ulcer: No History Surgical Site Infection Following: None - Disposition Have Diagnosis and Disposition been Completed?: No Diagnosis: Syncope, Gait instability, Hip injury, Head injury Disposition Time: 07:00 Patient Problems: Current Active Problems Problem Status Onset Gait instability Acute Head injury Acute Hip injury Acute Syncope Acute Condition: STABLE Discharge Instructions (ExitCare): Syncope (ED) Referrals: Nicholas Sears JD, MD [Primary Care Provider] - Follow up with primary
[2017-12-09 06:38] LABS: HEMOGLOBIN 8.5 g/dL (14.0-18.0); MEAN CORPUSCULAR HEMOGLOBIN 26.8 pg (25.0-35.0); MEAN CORPUSCULAR HGB CONC 30.5 g/dl (31.0-37.0); MEAN PLATELET VOLUME 9.8 fl (7.0-11.0); RBC 3.17 10^6/uL (3.5-6.1); RED CELL DISTRIBUTION WIDTH 13.3 % (11.5-14.5); WHITE BLOOD COUNT 7.3 10^3/ul (4.5-11.0)
[2017-12-09 06:57] LABS: PARTIAL THROMBOPLASTIN TIME 30.5 Seconds (25.1-36.5); TROPONIN I < 0.01 ng/mL
--- NOTE | 2017-12-09 06:58 | CT ---
EXAM: CT Head Without Intravenous Contrast CLINICAL HISTORY: 47 years old, male; Signs and symptoms; Syncope and collapse TECHNIQUE: Axial computed tomography images of the head/brain without intravenous contrast. All CT scans at this facility use one or more dose reduction techniques, viz.: automated exposure control; ma/kV adjustment per patient size (including targeted exams where dose is matched to indication; i.e. head); or iterative reconstruction technique. Coronal and sagittal reformatted images were created and reviewed. COMPARISON: CT - HEAD W/O CONTRAST 2017-07-02 16:19 FINDINGS: Brain: Examination of the brain demonstrates normal structure and attenuation.The cortical monteiro / white matter interfaces are preserved throughout the brain.No acute infarction, masses or hemorrhage is seen. No acute intracranial abnormality is identified.There is no hyperdense MCA sign.Examination of the posterior fossa demonstrates no significant abnormality. Ventricles: The ventricular system is not dilated and is appropriate for the patient's age. Bones/joints: Unremarkable. No acute fracture. Soft tissues: Unremarkable. Sinuses: Chronic right maxillary sinusitis with mucoperiosteal thickening. Mastoid air cells: Unremarkable as visualized. No mastoid effusion. IMPRESSION: No acute infarction, masses or hemorrhage is seen. No acute intracranial abnormality is identified.
--- NOTE | 2017-12-09 07:13 | ED PDOC ---
Physical Exam Vital Signs Reviewed: Yes Vital Signs Temp Pulse Resp BP Pulse Ox 12/09/17 09:51 97.8 F 60 17 109/74 100 12/09/17 07:27 71 17 110/62 99 12/09/17 05:30 97.4 F L 77 17 104/49 L 98 Temperature: Hypothermic Blood Pressure: Hypotensive Pulse: Regular Respiratory Rate: Normal Appearance: Positive for: Well-Appearing, Non-Toxic, Comfortable Pain Distress: None Mental Status: Positive for: Alert and Oriented X 3 Medical Decision Making ED Course and Treatment: 12/09/17 07:12 Case endorsed to me by Dr. Lu, pending X-rays, CT Head, re-assessment, and final disposition. CT Head Without Intravenous Contrast Dictated and Authenticated by: Stephen Peterson MD 12/09/2017 6:58 AM Eastern Time ([place] & [place]) IMPRESSION: No acute infarction, masses or hemorrhage is seen. No acute intracranial abnormality is identified. 12/09/17 10:13:Case discussed in detail with Dr. Sears. Radiographs of the pelvis and bilateral hips Dictator : Casimiro Lawrence MD Report Date : 12/09/2017 08:34:33 IMPRESSION: No acute findings CHEST X-RAY Dictator : Casimiro Lawrence MD Report Date : 12/09/2017 08:31:57 IMPRESSION: Minimal infiltrate at the right lung base12/09/17 10:18 - Lab Interpretations Lab Results: 12/09/17 06:20 12/09/17 06:20 Lab Results 12/09/17 09:50: pO2 50, VBG pH 7.28 L, VBG pCO2 62.0 H, VBG HCO3 29.1 H, VBG Total CO2 31.0 H, VBG O2 Sat (Calc) 90.0 H, VBG Base Excess 0.8, VBG Potassium 5.3 H, Glucose 163 H, Lactate 1.2, FiO2 21.0, Sodium 139.0, Chloride 109.0 H, Venous Blood Potassium 5.3 H 12/09/17 06:20: Alcohol, Quantitative < 10 12/09/17 06:20: WBC 7.3, RBC 3.17 L, Hgb 8.5 L, Hct 27.9 L, MCV 88.0, MCH 26.8, MCHC 30.5 L, RDW 13.3, Plt Count 299, MPV 9.8 12/09/17 06:20: Sodium 144, Potassium 5.1 H, Chloride 105, Carbon Dioxide 27, Anion Gap 16, BUN 33 H, Creatinine 2.1 H, Est GFR ( Amer) 41, Est GFR ( Non-Af Amer) 34, Random Glucose 121 H, Calcium 9.1, Total Bilirubin 0.4, AST 62 H, ALT 47, Alkaline Phosphatase 67, Lactate Dehydrogenase 527, Total Creatine Kinase 570 H, CK-MB (CK-2) 2.4, CK-MB (CK-2) % Cancelled, Troponin I < 0.01, Total Protein 7.8, Albumin 4.3, Globulin 3.5, Albumin/Globulin Ratio 1.2 12/09/17 06:20: PT 12.0, INR 1.04, APTT 30.5 12/09/17 06:01: POC Glucose (mg/dL) 117 H - RAD Interpretation Radiology Orders: 12/09/17 05:47 HEAD W/O CONTRAST [CT] Stat CHEST PORTABLE [RAD] Stat 12/09/17 05:50 Hip Bi with Pelvis Fall Protocol [HIP MIN 2V W/ PELVIS NATALYA] [RAD] Stat - Medication Orders Current Medication Orders: Discontinued Medications Ceftriaxone Sodium (Rocephin 1 Gram Ivpb) 1 gm in 100 mls @ 200 mls/hr IVPB STAT STA PRN Reason: Protocol Stop: 12/09/17 09:59 Last Admin: 12/09/17 10:20 Dose: 200 mls/hr eMAR Start Stop Document 12/09/17 10:20 JAVI (Rec: 12/09/17 10:20 JAVI [id number]) Intravenous Solution Start Date 12/09/17 Start Time 10:20 End Date 12/09/17 End time 11:00 Total Infusion Time 40 Azithromycin (Zithromax 500mg In Ns) 500 mg in 250 mls @ 167 mls/hr IVPB STAT STA PRN Reason: Protocol Stop: 12/09/17 10:59 Morphine Sulfate (Morphine) 4 mg IVP STAT STA Stop: 12/09/17 10:16 Last Admin: 12/09/17 10:23 Dose: 4 mg MAR Pain Assessment Document 12/09/17 10:23 JAVI (Rec: 12/09/17 10:23 JAVI [id number]) Pain Reassessment Is this a pain reassessment? No Sleep Is patient sleeping during reassessment? No Presence of Pain Presence of Pain Yes IVP Administration Document 12/09/17 10:23 SZA (Rec: 12/09/17 10:23 JAVI [id number]) Charges for Administration # of IVP Administrations 1 Ondansetron HCl (Zofran Inj) 4 mg IVP STAT STA Stop: 12/09/17 10:16 Last Admin: 12/09/17 10:23 Dose: 4 mg IVP Administration Document 12/09/17 10:23 SZA (Rec: 12/09/17 10:23 TAYLOR [id number]) Charges for Administration # of IVP Administrations 1 - Scribe Statement The provider has reviewed the documentation as recorded by the Scribe Bessy Early Provider Scribe Attestation: All medical record entries made by the Scribe were at my direction and personally dictated by me. I have reviewed the chart and agree that the record accurately reflects my personal performance of the history, physical exam, medical decision making, and the department course for this patient. I have also personally directed, reviewed, and agree with the discharge instructions and disposition. Disposition/Present on Arrival - Present on Arrival Any Indicators Present on Arrival: No History of DVT/PE: No History of Uncontrolled Diabetes: No Urinary Catheter: No History of Decub. Ulcer: No History Surgical Site Infection Following: None - Disposition Have Diagnosis and Disposition been Completed?: Yes Diagnosis: Syncope, Gait instability, Hip injury, Head injury, Pneumonia Disposition: AGAINST MEDICAL ADVICE Disposition Time: 11:10 Patient Plan: Discharge Condition: STABLE Discharge Instructions (ExitCare): Syncope (ED), Narcotic Pain Management (ED) , Community Acquired Pneumonia (ED) Additional Instructions: Ron- Maria Isabelry that you are going through all this. I wish you would stay, but I did speak with Dr. Sears. Keep your apointment with him tomorrow and start the levaquin later today. Return to us if worse or new symptoms occur. [place]- Dr. Ron Skinner Prescriptions: levoFLOXacin [Levaquin] 750 mg PO DAILY #10 tab Referrals: Nicholas Sears JD, MD [Primary Care Provider] - Follow up with primary Forms: [employer] (Armenian)
[2017-12-09 07:18] LABS: ALB/GLOB RATIO 1.2 (1.1-1.8); ALBUMIN 4.3 g/dL (3.0-4.8); ALT/SGPT 47 U/L (7-56); AST/SGOT 62 U/L (17-59); BLOOD UREA NITROGEN 33 mg/dL (7-21); CALCIUM 9.1 mg/dL (8.4-10.5); GFR AFRICAN-AMERICAN 41; GFR NON-AFRICAN AMERICAN 34
[2017-12-09 07:22] LABS: INR 1.04 (0.93-1.08)
--- NOTE | 2017-12-09 08:33 | RAD ---
HISTORY: dizzy COMPARISON: 07/02/2017 FINDINGS: LUNGS: There is a minimal infiltrate at the right lung base PLEURA: No significant pleural effusion identified, no pneumothorax apparent. CARDIOVASCULAR: Normal. OSSEOUS STRUCTURES: No significant abnormalities. VISUALIZED UPPER ABDOMEN: Normal. OTHER FINDINGS: None. IMPRESSION: Minimal infiltrate at the right lung base
--- NOTE | 2017-12-09 08:36 | RAD ---
PROCEDURE: Radiographs of the pelvis and bilateral hips HISTORY: injury left hip COMPARISON: None. FINDINGS: BONES: Pelvis: Unremarkable. Right hip:Right-sided compression screw and intramedullary edward. There is some heterotopic bone around the right femoral neck Left hip:Pins are seen in the left femoral head. JOINTS: Right hip: Unremarkable. Left hip: Unremarkable. Sacroiliac Joints: Unremarkable. Pubic symphysis: Unremarkable. SOFT TISSUES: Normal. OTHER FINDINGS: Surgical hardware in the lower lumbar spine as well as a spinal stimulator device IMPRESSION: No acute findings
[2017-12-09 09:00] LABS: CK-MB 2.4 ng/mL (0.0-3.6)
[2017-12-09] MEDS ORDERED: cefTRIAXone 1 gm 1 GM/100 ML BAG IVPB STA (09:30)
[2017-12-09] MEDS ORDERED: Azithromycin 500MG/NS 250ml 500 MG/250 ML BAG IVPB STA (09:30)
[2017-12-09 09:52] VITALS: TEMP 97.8; O2SAT 100
[2017-12-09] MEDS ORDERED: Morphine 4 mg/ml ISec IVP STA (10:15)
[2017-12-09] MEDS ORDERED: Morphine 4 mg/ml ISec ONE (10:22)
[2017-12-09 10:38] LABS: VENOUS BLOOD GAS BASE EXCESS 0.8 mmol/L (0.0-2.0); VENOUS BLOOD GAS PO2 50 mm/Hg (30-55); VENOUS BLOOD PH 7.28 (7.32-7.43)
[2017-12-09 12:30] VITALS: BP 110/87; PULSE 65; RESP 18
--- NOTE | 2017-12-09 17:56 | CARD ---
APPROVED REPORT EKG Measurement Heart [id number] <Conclusion> Normal sinus rhythm Normal ECG
== END 2017-12-09 12:30 | disposition left against medical advice (07) ==
LOC: ED 05:22
DX: J18.9 Pneumonia, unspecified organism (principal); S09.90XA Unspecified injury of head, initial encounter; S79.912A Unspecified injury of left hip, initial encounter; W19.XXXA Unspecified fall, initial encounter; R29.6 Repeated falls; R26.81 Unsteadiness on feet; I10 Essential (primary) hypertension; E11.9 Type 2 diabetes mellitus without complications; I25.10 Atherosclerotic heart disease of native coronary artery without angina pectoris; F17.210 Nicotine dependence, cigarettes, uncomplicated
CPT/HCPCS: 70450; 71045; 73521; 80053; 82550; 82553; 82803; 82948; 83615; 84484; 85027; 85610; 85730; 87040; 93005; 96365; 96367; 96375; 99285; G0480; J0456; J0696; J2270; J2405